=== PATIENT | female | born 1965 | race Caucasian/White ===

== ENCOUNTER 2018-01-07 15:54 | Emergency (ER) | payer MEDICARE, MEDICAID ==
[~2018-01-07] VITALS: Ht 162.6 cm; Wt 77.3 kg
[~2018-01-07 15:54] MED LIST: DIVA500T52 PO; GABA-533 PO; HYDR50CA10 PO; QUET200T PO; SERT100T12 PO; SIMV-259 PO; TRAZ-144 PO
[2018-01-07] MEDS ORDERED: OXYB1PAT4 PO (15:59)
[2018-01-07] MEDS ORDERED: BENA5TAB26 PO (15:59)
[2018-01-07] MEDS ORDERED: ESOM20CA31 PO (15:59)
[2018-01-07] MEDS ORDERED: DIVA500T35 PO (15:59)
[2018-01-07] MEDS ORDERED: METF500T6 PO (15:59)
[2018-01-07 16:32] VITALS: BP 122/54
== END 2018-01-07 17:17 | disposition home or self-care (01) ==
LOC: EMS 15:56
DX: S01.80XA Unspecified open wound of other part of head, initial encounter (principal); E11.9 Type 2 diabetes mellitus without complications; I10 Essential (primary) hypertension; F20.9 Schizophrenia, unspecified; F31.9 Bipolar disorder, unspecified; Z88.0 Allergy status to penicillin; Z88.6 Allergy status to analgesic agent; Z79.899 Other long term (current) drug therapy; W07.XXXA Fall from chair, initial encounter; Y93.89 Activity, other specified; Y92.89 Other specified places as the place of occurrence of the external cause; Y99.8 Other external cause status
CPT/HCPCS: 99282

== ENCOUNTER 2018-01-19 18:01 | Emergency (ER) | payer MEDICARE, MEDICAID ==
[~2018-01-19] VITALS: Ht 165.1 cm; Wt 63.6 kg
[~2018-01-19 18:01] MED LIST changes: +BENA5TAB26 PO; +DIVA500T35 PO; -DIVA500T52 PO; +ESOM20CA31 PO; +METF500T6 PO; +OXYB1PAT4 PO
[2018-01-19 18:28] LABS: GLUCOSE,POINT OF CARE 135 MG/DL (70-110)
[2018-01-19 22:44] VITALS: BP 131/68
[2018-01-20] MEDS ORDERED: QUET100T PO (22:42)
[2018-01-20] MEDS ORDERED: LORA1TAB3 PO (22:42)
[2018-01-20] MEDS ORDERED: BENZ1TAB10 PO (22:42)
[2018-01-20] MEDS ORDERED: DOCU250C90 PO (22:42)
[2018-01-20] MEDS ORDERED: SENN-175 PO (22:42)
[2018-01-20] MEDS ORDERED: ACET325T47 PO (22:42)
[2018-01-20] MEDS ORDERED: BENZ2TAB10 PO (22:42)
== END 2018-01-19 22:46 | disposition home or self-care (01) ==
LOC: EMS 18:02
DX: R60.0 Localized edema (principal); M79.89 Other specified soft tissue disorders; E11.9 Type 2 diabetes mellitus without complications; I10 Essential (primary) hypertension; F17.210 Nicotine dependence, cigarettes, uncomplicated; Z95.1 Presence of aortocoronary bypass graft; Z88.0 Allergy status to penicillin; Z88.2 Allergy status to sulfonamides; Z88.5 Allergy status to narcotic agent
CPT/HCPCS: 93971; 99284

== ENCOUNTER 2018-01-20 22:23 | Emergency (ER) | payer MEDICARE, MEDICAID ==
[~2018-01-20] VITALS: Ht 165.1 cm; Wt 63.0 kg
[2018-01-20] MEDS ORDERED: SENN-175 PO (22:42)
[2018-01-20] MEDS ORDERED: LORA1TAB3 PO (22:42)
[2018-01-20] MEDS ORDERED: DOCU250C90 PO (22:42)
[2018-01-20] MEDS ORDERED: BENZ2TAB10 PO (22:42)
[2018-01-20] MEDS ORDERED: BENZ1TAB10 PO (22:42)
[2018-01-20] MEDS ORDERED: ACET325T47 PO (22:42)
[2018-01-20] MEDS ORDERED: QUET100T PO (22:42)
[2018-01-20] MEDS ORDERED: SODIUM CHLORIDE 0.9% 1,000 ML IV ONE (23:45)
[2018-01-20] MEDS ORDERED: ONDANSETRON HCL 4 MG/2 ML VIAL IVP ONE (23:45)
[2018-01-20 23:56] LABS: BASOPHILS % (AUTO) 0.1 % (0.0-2.0); EOSINOPHILS % (AUTO) 0 % (1.0-6.0); HEMATOCRIT 36.2 % (36-46); HEMOGLOBIN 12.8 g/dL (12.0-16.0); LYMPHOCYTES # (AUTO) 0.4 K/uL (1.0-4.8); LYMPHOCYTES % (AUTO) 4.7 % (22.0-44.0); MEAN CORPUSCULAR HEMOGLOBIN 36.9 pg (26.0-34.0); MEAN CORPUSCULAR HGB CONC 35.5 G/dL (31.0-37.0); MEAN CORPUSCULAR VOLUME 104 fL (80-100); MONOCYTES # (AUTO) 0.8 K/uL (0.1-1.0); NEUTROPHILS # (AUTO) 8.1 K/uL (1.8-7.7); PLATELET COUNT (AUTO) 147 K/uL (150-450); RED BLOOD CELL COUNT(AUTO) 3.48 MIL/uL (4.00-5.20); RED CELL DISTRIBUTION WIDTH 16.3 % (11.5-14.5)
[2018-01-21 00:03] LABS: NEUTROPHILS % (AUTO) 86.2 % (40.0-70.0)
[2018-01-21 00:13] LABS: ANION GAP 6 mmol/L (8-16); CALCIUM, TOTAL 8.9 mg/dL (8.8-10.5); CARBON DIOXIDE 29 mmol/L (22-29); CHLORIDE 103 mmol/L (98-107); CREATININE 0.75 mg/dL (0.60-1.30); GLOMERULAR FILTR. RATE CALC > 60 mL/min (>60); GLUCOSE,RANDOM 165 mg/dL (70-110); SODIUM SERUM 138 mmol/L (136-145); UREA NITROGEN, BLOOD 16 mg/dL (7-18)
[2018-01-21 00:23] LABS: PLATELET MORPHOLOGY COMMENT GIANT PLTS PRESENT
[2018-01-21 00:26] LABS: ALANINE AMINOTRANSFERASE 13 U/L (12-78); ALBUMIN 2.5 g/dL (3.4-5.0); ALKALINE PHOSPHATASE 107 U/L (46-116); ASPARTATE AMINOTRANSFERASE 23 U/L (15-37); BILIRUBIN,TOTAL 0.6 mg/dL (0.1-1.0); LIPASE 45 U/L (73-393); TOTAL PROTEIN, SERUM 7.9 g/dL (6.4-8.2)
[2018-01-21] MEDS ORDERED: BARIUM SULFATE 0.1% SUSPENSION 450 ML BOTTLE PO ONE (01:30)
[2018-01-21] MEDS ORDERED: IOVERSOL 350 MG/ML 100 ML VIAL ONE (02:10)
[2018-01-21] MEDS ORDERED: SODIUM CHLORIDE 0.9% 100 ML ONE (02:10)
[2018-01-21] MEDS ORDERED: ONDANSETRON HCL 4 MG/2 ML VIAL IVP ONE (02:30)
[2018-01-21 05:15] VITALS: BP 118/71
== END 2018-01-21 05:39 | disposition home or self-care (01) ==
LOC: EMS 22:24
DX: K29.70 Gastritis, unspecified, without bleeding (principal); E86.0 Dehydration; E11.9 Type 2 diabetes mellitus without complications; I10 Essential (primary) hypertension; F17.210 Nicotine dependence, cigarettes, uncomplicated; Z95.1 Presence of aortocoronary bypass graft; Z88.5 Allergy status to narcotic agent; Z88.0 Allergy status to penicillin; Z88.2 Allergy status to sulfonamides
CPT/HCPCS: 36415; 74177; 80053; 83605; 83690; 84484; 85025; 93005; 96374; 96376; 99285; J2405 ×2; J7030; J7050; Q9967

== ENCOUNTER 2018-05-16 03:25 | Emergency (ER) | payer MEDICARE, MEDICAID ==
[~2018-05-16] VITALS: Ht 165.1 cm; Wt 63.0 kg
[~2018-05-16 03:25] MED LIST changes: +ACET325T47 PO; -BENA5TAB26 PO; +BENZ1TAB10 PO; +BENZ2TAB10 PO; +DIVA-78 PO; -DIVA500T35 PO; +DOCU250C90 PO; +LORA1TAB3 PO; +METF-960 PO; -METF500T6 PO; +QUET100T PO; -QUET200T PO; +SENN-175 PO; -TRAZ-144 PO
[2018-05-16 03:53] VITALS: BP 137/68
[2018-05-16 04:19] LABS: BASOPHILS % (AUTO) 0.8 % (0.0-2.0); EOSINOPHILS % (AUTO) 0.7 % (1.0-6.0); HEMATOCRIT 38.2 % (36-46); HEMOGLOBIN 13.3 g/dL (12.0-16.0); LYMPHOCYTES # (AUTO) 1.8 K/uL (1.0-4.8); LYMPHOCYTES % (AUTO) 52.2 % (22.0-44.0); MEAN CORPUSCULAR HEMOGLOBIN 38.4 pg (26.0-34.0); MEAN CORPUSCULAR HGB CONC 34.8 G/dL (31.0-37.0); MEAN CORPUSCULAR VOLUME 110 fL (80-100); MONOCYTES # (AUTO) 0.4 K/uL (0.1-1.0); MONOCYTES % (AUTO) 13.1 % (2.0-9.0); NEUTROPHILS # (AUTO) 1.1 K/uL (1.8-7.7); NEUTROPHILS % (AUTO) 33.2 % (40.0-70.0); PLATELET COUNT (AUTO) 118 K/uL (150-450); RED BLOOD CELL COUNT(AUTO) 3.46 MIL/uL (4.00-5.20); RED CELL DISTRIBUTION WIDTH 14.9 % (11.5-14.5)
[2018-05-16 04:27] LABS: ANION GAP 3 mmol/L (8-16); CALCIUM, TOTAL 8.9 mg/dL (8.8-10.5); CARBON DIOXIDE 33 mmol/L (22-29); CHLORIDE 97 mmol/L (98-107); CREATININE 0.69 mg/dL (0.60-1.30); GLOMERULAR FILTR. RATE CALC > 60 mL/min (>60); GLUCOSE,RANDOM 93 mg/dL (70-110); POTASSIUM 3.9 mmol/L (3.5-5.1); SODIUM SERUM 133 mmol/L (136-145); UREA NITROGEN, BLOOD 16 mg/dL (7-18)
[2018-05-16 04:32] LABS: ALANINE AMINOTRANSFERASE 19 U/L (12-78); ALKALINE PHOSPHATASE 83 U/L (46-116); ASPARTATE AMINOTRANSFERASE 24 U/L (15-37); BILIRUBIN,TOTAL 0.4 mg/dL (0.1-1.0); TOTAL PROTEIN, SERUM 8.3 g/dL (6.4-8.2); VALPROIC ACID 87 mcg/mL (50-100)
== END 2018-05-16 04:33 | disposition home or self-care (01) ==
LOC: EMS 03:26
DX: F25.9 Schizoaffective disorder, unspecified (principal); F31.9 Bipolar disorder, unspecified; E11.9 Type 2 diabetes mellitus without complications; I10 Essential (primary) hypertension; Z98.51 Tubal ligation status; Z95.1 Presence of aortocoronary bypass graft; Z88.0 Allergy status to penicillin; Z88.2 Allergy status to sulfonamides; Z88.5 Allergy status to narcotic agent
CPT/HCPCS: 36415; 80053; 80164; 85025; 99284; G0480

== ENCOUNTER 2018-09-25 08:51 | Emergency (ER) | payer MEDICARE, MEDICAID ==
[~2018-09-25] VITALS: Ht 157.5 cm; Wt 65.9 kg
[~2018-09-25 08:51] MED LIST changes: -SENN-175 PO; +SENN-176 PO
[2018-09-25 10:28] LABS: BASOPHILS % (AUTO) 0.5 % (0.0-2.0); EOSINOPHILS % (AUTO) 0.1 % (1.0-6.0); HEMATOCRIT 38.2 % (36-46); HEMOGLOBIN 12.9 g/dL (12.0-16.0); LYMPHOCYTES # (AUTO) 0.6 K/uL (1.0-4.8); MEAN CORPUSCULAR HEMOGLOBIN 37.2 pg (26.0-34.0); MEAN CORPUSCULAR HGB CONC 33.7 G/dL (31.0-37.0); MEAN CORPUSCULAR VOLUME 111 fL (80-100); MONOCYTES % (AUTO) 23.5 % (2.0-9.0); NEUTROPHILS # (AUTO) 2.6 K/uL (1.8-7.7); NEUTROPHILS % (AUTO) 61.9 % (40.0-70.0); RED BLOOD CELL COUNT(AUTO) 3.46 MIL/uL (4.00-5.20); RED CELL DISTRIBUTION WIDTH 14.2 % (11.5-14.5)
[2018-09-25 10:37] LABS: ANION GAP 7 mmol/L (8-16); CALCIUM, TOTAL 9.1 mg/dL (8.8-10.5); CARBON DIOXIDE 29 mmol/L (22-29); CHLORIDE 101 mmol/L (98-107); CREATININE 0.73 mg/dL (0.60-1.30); GLOMERULAR FILTR. RATE CALC > 60 mL/min (>60); GLUCOSE,RANDOM 146 mg/dL (70-110); POTASSIUM 4.5 mmol/L (3.5-5.1); SODIUM SERUM 137 mmol/L (136-145); UREA NITROGEN, BLOOD 14 mg/dL (7-18)
[2018-09-25 10:43] LABS: ALANINE AMINOTRANSFERASE 18 U/L (12-78); ALBUMIN 2.5 g/dL (3.4-5.0); ALKALINE PHOSPHATASE 117 U/L (46-116); ASPARTATE AMINOTRANSFERASE 46 U/L (15-37); BILIRUBIN,TOTAL 0.3 mg/dL (0.1-1.0); LIPASE 142 U/L (73-393); TOTAL PROTEIN, SERUM 7.8 g/dL (6.4-8.2); VALPROIC ACID 82 mcg/mL (50-100)
[2018-09-25 10:58] LABS: APPEARANCE,URINE CLEAR (CLEAR); BILIRUBIN,URINE NEGATIVE (NEGATIVE); GLUCOSE, URINE (UA) NEGATIVE (NEGATIVE); KETONES,URINE NEGATIVE (NEGATIVE); LEUKOCYTE ESTERASE ,URINE NEGATIVE (NEGATIVE); NITRATE,URINE NEGATIVE (NEGATIVE); OCCULT BLOOD,URINE NEGATIVE (NEGATIVE); PROTEIN,URINE NEGATIVE (NEGATIVE)
[2018-09-25 11:07] LABS: AMPHET/METH SCREEN,URINE NEGATIVE (NEGATIVE); BARBITURATE SCREEN, URINE NEGATIVE (NEGATIVE); BENZODIAZEPINES SCREEN,URINE NEGATIVE (NEGATIVE); CANNABINOID SCREEN,URINE NEGATIVE (NEGATIVE); COCAINE SCREEN,URINE NEGATIVE (NEGATIVE); METHADONE SCREEN, URINE NEGATIVE (NEGATIVE); OPIATE SCREEN,URINE NEGATIVE (NEGATIVE)
[2018-09-25 11:09] LABS: PHENCYCLIDINE SCREEN,URINE NEGATIVE (NEGATIVE)
[2018-09-25 11:54] LABS: PLATELET COUNT (AUTO) 91 K/uL (150-450)
[2018-09-25 13:51] VITALS: BP 124/86
== END 2018-09-25 13:53 | disposition home or self-care (01) ==
LOC: EMS 08:52
DX: F41.9 Anxiety disorder, unspecified (principal); F25.9 Schizoaffective disorder, unspecified; F31.9 Bipolar disorder, unspecified; R10.9 Unspecified abdominal pain; R35.0 Frequency of micturition; I10 Essential (primary) hypertension; E11.9 Type 2 diabetes mellitus without complications; Z87.891 Personal history of nicotine dependence; Z98.51 Tubal ligation status; Z95.1 Presence of aortocoronary bypass graft; Z79.84 Long term (current) use of oral hypoglycemic drugs; Z88.0 Allergy status to penicillin; Z88.2 Allergy status to sulfonamides; Z88.5 Allergy status to narcotic agent; Z79.899 Other long term (current) drug therapy

== ENCOUNTER 2018-12-09 12:10 | Emergency (ER) | payer MEDICARE, MEDICAID ==
[~2018-12-09] VITALS: Ht 160 cm; Wt 50.0 kg
[~2018-12-09 12:10] MED LIST changes: -BENZ2TAB10 PO
[2018-12-09] MEDS ORDERED: ACETAMINOPHEN 325 MG TABLET PO ONE (12:45)
[2018-12-09 13:38] VITALS: BP 124/51
== END 2018-12-09 14:31 | disposition home or self-care (01) ==
LOC: EMS 12:13
DX: S00.03XA Contusion of scalp, initial encounter (principal); E11.9 Type 2 diabetes mellitus without complications; I10 Essential (primary) hypertension; F31.9 Bipolar disorder, unspecified; F20.9 Schizophrenia, unspecified; Z98.51 Tubal ligation status; Z95.1 Presence of aortocoronary bypass graft; Z79.899 Other long term (current) drug therapy; Z88.0 Allergy status to penicillin; Z88.2 Allergy status to sulfonamides; Z88.6 Allergy status to analgesic agent; W18.09XA Striking against other object with subsequent fall, initial encounter; Y93.89 Activity, other specified; Y92.89 Other specified places as the place of occurrence of the external cause; Y99.8 Other external cause status
CPT/HCPCS: 70450

== ENCOUNTER 2019-01-18 14:47 | Emergency (ER) | payer MEDICARE, MEDICAID ==
[~2019-01-18] VITALS: Ht 149.9 cm; Wt 47.7 kg
[2019-01-18 16:19] LABS: AMPHET/METH SCREEN,URINE NEGATIVE (NEGATIVE); BARBITURATE SCREEN, URINE NEGATIVE (NEGATIVE); BENZODIAZEPINES SCREEN,URINE POSITIVE (NEGATIVE); CANNABINOID SCREEN,URINE NEGATIVE (NEGATIVE); COCAINE SCREEN,URINE NEGATIVE (NEGATIVE); METHADONE SCREEN, URINE NEGATIVE (NEGATIVE); OPIATE SCREEN,URINE NEGATIVE (NEGATIVE)
[2019-01-18 16:20] LABS: PHENCYCLIDINE SCREEN,URINE NEGATIVE (NEGATIVE)
[2019-01-18 16:22] LABS: BASOPHILS % (AUTO) 0.8 % (0.0-2.0); EOSINOPHILS % (AUTO) 1.2 % (1.0-6.0); HEMATOCRIT 34.4 % (36-46); HEMOGLOBIN 11.9 g/dL (12.0-16.0); LYMPHOCYTES # (AUTO) 2.3 K/uL (1.0-4.8); LYMPHOCYTES % (AUTO) 47.1 % (22.0-44.0); MEAN CORPUSCULAR HEMOGLOBIN 37.8 pg (26.0-34.0); MEAN CORPUSCULAR HGB CONC 34.5 G/dL (31.0-37.0); MEAN CORPUSCULAR VOLUME 110 fL (80-100); MONOCYTES # (AUTO) 0.6 K/uL (0.1-1.0); NEUTROPHILS # (AUTO) 1.9 K/uL (1.8-7.7); NEUTROPHILS % (AUTO) 37.9 % (40.0-70.0); PLATELET COUNT (AUTO) 137 K/uL (150-450); RED BLOOD CELL COUNT(AUTO) 3.14 MIL/uL (4.00-5.20); RED CELL DISTRIBUTION WIDTH 14.9 % (11.5-14.5)
[2019-01-18 16:34] LABS: ANION GAP 6 mmol/L (8-16); CALCIUM, TOTAL 8.6 mg/dL (8.8-10.5); CARBON DIOXIDE 28 mmol/L (22-29); CHLORIDE 103 mmol/L (98-107); CREATININE 0.69 mg/dL (0.60-1.30); GLOMERULAR FILTR. RATE CALC > 60 mL/min (>60); GLUCOSE,RANDOM 156 mg/dL (70-110); POTASSIUM 4.2 mmol/L (3.5-5.1); SODIUM SERUM 137 mmol/L (136-145); UREA NITROGEN, BLOOD 21 mg/dL (7-18)
[2019-01-18 16:41] LABS: ALANINE AMINOTRANSFERASE 6 U/L (12-78); ALBUMIN 2.5 g/dL (3.4-5.0); ALKALINE PHOSPHATASE 66 U/L (46-116); ASPARTATE AMINOTRANSFERASE 14 U/L (15-37); BILIRUBIN,TOTAL 0.2 mg/dL (0.1-1.0); TOTAL PROTEIN, SERUM 7.5 g/dL (6.4-8.2); VALPROIC ACID 70 mcg/mL (50-100)
[2019-01-18 17:45] VITALS: BP 125/72
== END 2019-01-18 18:10 | disposition home or self-care (01) ==
LOC: EMS 14:49
DX: F20.9 Schizophrenia, unspecified (principal); I10 Essential (primary) hypertension; F31.9 Bipolar disorder, unspecified; E11.9 Type 2 diabetes mellitus without complications; Z88.0 Allergy status to penicillin; Z88.2 Allergy status to sulfonamides; Z88.5 Allergy status to narcotic agent; X78.8XXA Intentional self-harm by other sharp object, initial encounter; Y93.89 Activity, other specified; Y92.89 Other specified places as the place of occurrence of the external cause; Y99.8 Other external cause status
CPT/HCPCS: 36415; 80053; 80164; 80307; 85025; 99285; G0480

== ENCOUNTER 2019-04-30 17:51 | Inpatient (IN) | payer MEDICARE, MEDICAID ==
[~2019-04-30] VITALS: Ht 157.5 cm; Wt 49.9 kg
[~2019-04-30 17:51] MED LIST changes: -HYDR50CA10 PO; +HYDR50CA9 PO; +LORA-1000 PO; -LORA1TAB3 PO
[2019-04-30 18:16] LABS: GLUCOSE,POINT OF CARE 140 MG/DL (70-110)
[2019-04-30 18:29] LABS: EOSINOPHILS % (AUTO) 1.3 % (1.0-6.0); HEMATOCRIT 39.8 % (36-46); HEMOGLOBIN 13.7 g/dL (12.0-16.0); LYMPHOCYTES # (AUTO) 2.7 K/uL (1.0-4.8); LYMPHOCYTES % (AUTO) 49.4 % (22.0-44.0); MEAN CORPUSCULAR HEMOGLOBIN 37.4 pg (26.0-34.0); MEAN CORPUSCULAR HGB CONC 34.4 G/dL (31.0-37.0); MEAN CORPUSCULAR VOLUME 109 fL (80-100); MONOCYTES # (AUTO) 0.8 K/uL (0.1-1.0); MONOCYTES % (AUTO) 15.4 % (2.0-9.0); NEUTROPHILS # (AUTO) 1.8 K/uL (1.8-7.7); NEUTROPHILS % (AUTO) 32.9 % (40.0-70.0); PLATELET COUNT (AUTO) 158 K/uL (150-450); RED BLOOD CELL COUNT(AUTO) 3.67 MIL/uL (4.00-5.20); RED CELL DISTRIBUTION WIDTH 14.8 % (11.5-14.5)
[2019-04-30 18:53] LABS: ANION GAP 11 mmol/L (8-16); CALCIUM, TOTAL 8.9 mg/dL (8.8-10.5); CARBON DIOXIDE 26 mmol/L (22-29); CHLORIDE 104 mmol/L (98-107); CREATININE 0.84 mg/dL (0.60-1.30); GLOMERULAR FILTR. RATE CALC > 60 mL/min (>60); GLUCOSE,RANDOM 144 mg/dL (70-110); POTASSIUM 4.2 mmol/L (3.5-5.1); SODIUM SERUM 141 mmol/L (136-145); UREA NITROGEN, BLOOD 19 mg/dL (7-18)
[2019-04-30 18:59] LABS: ALBUMIN 2.9 g/dL (3.4-5.0); ALKALINE PHOSPHATASE 73 U/L (46-116); ASPARTATE AMINOTRANSFERASE 15 U/L (15-37); BILIRUBIN,TOTAL 0.2 mg/dL (0.1-1.0); TOTAL PROTEIN, SERUM 7.7 g/dL (6.4-8.2)
[2019-04-30 19:08] LABS: ALANINE AMINOTRANSFERASE 9 U/L (12-78)
[2019-04-30] MEDS ORDERED: LORazepam 2 MG TABLET PO PRN (22:00)
[2019-04-30] MEDS ORDERED: ZOLPIDEM TARTRATE 10 MG TABLET PO PRN (22:00)
[2019-04-30] MEDS ORDERED: QUEtiapine FUMARATE 100 MG TABLET PO PRN (22:00)
[2019-04-30] MEDS ORDERED: 0.9% SODIUM CHLORIDE 10 ML SYRINGE IVP PRN (22:45)
[2019-04-30] MEDS ORDERED: ACETAMINOPHEN 325 MG TABLET PO PRN (22:45)
[2019-04-30] MEDS ORDERED: ONDANSETRON HCL 4 MG/2 ML VIAL IVP PRN (22:45)
[2019-05-01 00:54] VITALS: BP 129/62
[2019-05-01] MEDS ORDERED: INFLUENZA VIRUS VACCINE QVS 2019-20 (3YR+)/PF 60 MCG/0.5 ML SYRINGE IM ONE (03:30)
[2019-05-01 08:00] VITALS: BP 146/78
[2019-05-01] MEDS ORDERED: MAG HYDROX/AL HYDROX/SIMETH ES 30 ML SUSPENSION UDCUP PO PRN (08:45)
[2019-05-01] MEDS ORDERED: GuaiFENesin/D-METHORPHAN [SUGAR-FREE] 200-20MG/10 ML SYRUP UDCUP PO PRN (08:45)
[2019-05-01] MEDS ORDERED: ONDANSETRON HCL 4 MG TABLET PO PRN (08:45)
[2019-05-01] MEDS ORDERED: CloNIDine HCL 0.1 MG TABLET PO PRN (08:45)
[2019-05-01] MEDS ORDERED: DOCUSATE SODIUM 100 MG CAPSULE PO PRN (08:45)
[2019-05-01] MEDS ORDERED: ACETAMINOPHEN 325 MG TABLET PO PRN (08:45)
[2019-05-01] MEDS ORDERED: PETROLATUM,WHITE 28 GM JELLY TP PRN (08:45)
[2019-05-01] MEDS ORDERED: NICOTINE 14 MG/24 HOUR PATCH TD PRN (08:45)
[2019-05-01] MEDS ORDERED: MAGNESIUM HYDROXIDE SUSPENSION 30 ML UDCUP PO PRN (08:45)
[2019-05-01] MEDS ORDERED: ALBUTEROL SULFATE HFA 90 MCG/PUFF 8 GM INHALER IH PRN (08:45)
[2019-05-01] MEDS ORDERED: IBUPROFEN 400 MG TABLET PO PRN (08:45)
[2019-05-01] MEDS ORDERED: SENNA 187 MG TABLET PO SCH ×2 (09:00→09:10)
[2019-05-01] MEDS: SENNA 187 MG TABLET PO SCH ×2 (09:38→16:53)
[2019-05-01] MEDS: SERTRALINE HCL 100 MG TABLET PO SCH (13:42)
[2019-05-01] MEDS: DIVALPROEX SODIUM 500 MG DR TABLET PO SCH (16:53)
[2019-05-01] MEDS: MetFORMIN HCL 500 MG TABLET PO SCH (16:53)
[2019-05-01] MEDS: QUEtiapine FUMARATE 200 MG TABLET PO SCH (21:17)
[2019-05-01] MEDS: BENZTROPINE MESYLATE 1 MG TABLET PO SCH (21:18)
[2019-05-01 21:23] VITALS: BP 134/81
[2019-05-02] MEDS: MetFORMIN HCL 500 MG TABLET PO SCH ×3 (07:15→17:30)
[2019-05-02 08:00] VITALS: BP 109/53
[2019-05-02] MEDS: DIVALPROEX SODIUM 500 MG DR TABLET PO SCH ×2 (09:52→17:20)
[2019-05-02] MEDS: SERTRALINE HCL 100 MG TABLET PO SCH (09:52)
[2019-05-02] MEDS: SENNA 187 MG TABLET PO SCH ×3 (09:52→17:20)
[2019-05-02 16:42] VITALS: BP 121/77
[2019-05-02] MEDS: LOPERAMIDE HCL 2 MG CAPSULE PO PRN (17:20)
[2019-05-02] MEDS: BENZTROPINE MESYLATE 1 MG TABLET PO SCH (20:25)
[2019-05-02] MEDS: QUEtiapine FUMARATE 200 MG TABLET PO SCH (20:25)
[2019-05-03 08:00] VITALS: BP 113/65
[2019-05-03] MEDS: DIVALPROEX SODIUM 500 MG DR TABLET PO SCH ×2 (08:30→16:49)
[2019-05-03] MEDS: MetFORMIN HCL 500 MG TABLET PO SCH ×2 (08:30→16:48)
[2019-05-03] MEDS: SERTRALINE HCL 100 MG TABLET PO SCH (08:30)
[2019-05-03] MEDS: SENNA 187 MG TABLET PO SCH ×2 (08:31→16:48)
[2019-05-03 16:34] VITALS: BP 53/79
[2019-05-03] MEDS: BENZTROPINE MESYLATE 1 MG TABLET PO SCH (20:19)
[2019-05-03] MEDS: QUEtiapine FUMARATE 200 MG TABLET PO SCH (20:19)
[2019-05-04] MEDS: SERTRALINE HCL 100 MG TABLET PO SCH (08:08)
[2019-05-04] MEDS: SENNA 187 MG TABLET PO SCH ×2 (08:08→17:00)
[2019-05-04] MEDS: MetFORMIN HCL 500 MG TABLET PO SCH ×2 (08:09→17:39)
[2019-05-04] MEDS: DIVALPROEX SODIUM 500 MG DR TABLET PO SCH ×2 (08:09→17:39)
[2019-05-04 09:21] VITALS: BP 122/67
[2019-05-04] MEDS ORDERED: ZOLPIDEM TARTRATE 10 MG TABLET PO PRN (11:00)
[2019-05-04] MEDS: LOPERAMIDE HCL 2 MG CAPSULE PO PRN (12:37)
[2019-05-04] MEDS: LORazepam 1 MG TABLET PO PRN (12:37)
[2019-05-04] MEDS ORDERED: LORazepam 2 MG TABLET PO PRN (14:00)
[2019-05-04] MEDS ORDERED: QUEtiapine FUMARATE 25 MG TABLET PO PRN (14:00)
[2019-05-04] MEDS: QUEtiapine FUMARATE 200 MG TABLET PO SCH (20:30)
[2019-05-04] MEDS: BENZTROPINE MESYLATE 1 MG TABLET PO SCH (20:30)
[2019-05-05] MEDS: MetFORMIN HCL 500 MG TABLET PO SCH ×2 (06:51→16:35)
[2019-05-05] MEDS: DIVALPROEX SODIUM 500 MG DR TABLET PO SCH ×2 (08:13→16:35)
[2019-05-05] MEDS: SERTRALINE HCL 100 MG TABLET PO SCH (08:14)
[2019-05-05] MEDS: SENNA 187 MG TABLET PO SCH ×2 (08:14→16:35)
[2019-05-05 09:41] VITALS: BP 107/64
[2019-05-05] MEDS: LORazepam 1 MG TABLET PO PRN (16:38)
[2019-05-05 18:00] VITALS: BP 119/60
[2019-05-05] MEDS: BENZTROPINE MESYLATE 1 MG TABLET PO SCH (20:12)
[2019-05-05] MEDS: QUEtiapine FUMARATE 200 MG TABLET PO SCH (20:12)
[2019-05-06] MEDS: MetFORMIN HCL 500 MG TABLET PO SCH ×2 (06:38→16:48)
[2019-05-06] MEDS: SENNA 187 MG TABLET PO SCH (09:59)
[2019-05-06] MEDS: SERTRALINE HCL 100 MG TABLET PO SCH (09:59)
[2019-05-06] MEDS: DIVALPROEX SODIUM 500 MG DR TABLET PO SCH ×2 (09:59→16:48)
[2019-05-06 10:59] VITALS: BP 132/56
[2019-05-06] MEDS ORDERED: LORA-192 PO (16:09)
[2019-05-06] MEDS ORDERED: OXYB5XL PO (16:09)
[2019-05-06] MEDS: LOPERAMIDE HCL 2 MG CAPSULE PO PRN (16:48)
[2019-05-06 17:00] VITALS: BP 113/63
[2019-05-06] MEDS: QUEtiapine FUMARATE 200 MG TABLET PO SCH (22:12)
[2019-05-06] MEDS: BENZTROPINE MESYLATE 1 MG TABLET PO SCH (22:12)
[2019-05-07] MEDS: MetFORMIN HCL 500 MG TABLET PO SCH (06:31)
[2019-05-07] MEDS: DIVALPROEX SODIUM 500 MG DR TABLET PO SCH (08:57)
[2019-05-07] MEDS: SERTRALINE HCL 100 MG TABLET PO SCH (08:57)
[2019-05-07 09:48] VITALS: BP 138/77
== END 2019-05-07 14:15 | disposition home or self-care (01) | DRG 885 ==
LOC: EMS 17:53 → 3EX 05-01 00:04
DX: F25.0 Schizoaffective disorder, bipolar type (principal); E44.0 Moderate protein-calorie malnutrition; R45.851 Suicidal ideations; Q93.82 Williams syndrome; I10 Essential (primary) hypertension; E11.9 Type 2 diabetes mellitus without complications; E78.5 Hyperlipidemia, unspecified; J44.9 Chronic obstructive pulmonary disease, unspecified; K21.9 Gastro-esophageal reflux disease without esophagitis; K59.00 Constipation, unspecified; R32 Unspecified urinary incontinence; F17.210 Nicotine dependence, cigarettes, uncomplicated; Z91.5 Personal history of self-harm; Z95.1 Presence of aortocoronary bypass graft; Z88.0 Allergy status to penicillin; Z88.2 Allergy status to sulfonamides; Z88.6 Allergy status to analgesic agent; Z79.899 Other long term (current) drug therapy; Z98.51 Tubal ligation status; Z68.20 Body mass index [BMI] 20.0-20.9, adult
CPT/HCPCS: G0378; G0480

== ENCOUNTER 2021-10-16 13:35 | Inpatient (IN) | payer MEDICARE, MEDICAID ==
[~2021-10-16] VITALS: Ht 160 cm; Wt 54.5 kg
[~2021-10-16 13:35] MED LIST changes: -ACET325T47 PO; +ALBU8HFA IH; +AMIO200 PO; +AMIO200T68 PO; +ASPI-1450 PO; -BENZ1TAB10 PO; +BISA-151 PO; +CHOL500013 PO; +DIVA-112 PO; -DIVA-78 PO; +DOCU-350 PO; -DOCU250C90 PO; +FOLI0.4T6 PO; +FURO20 PO; +GABA-1201 PO; -GABA-533 PO; -HYDR50CA9 PO; +IPRA3S NASAL; -LORA-1000 PO; +MELA3TAB89 PO; +METF-1211 PO; -METF-960 PO; +METO-558 PO; +METO25XL PO; +MOM30 PO; +NICO-650 TP; +OXYB-34 PO; -OXYB1PAT4 PO; -SENN-176 PO; +SENN8.8S18 PO; -SERT100T12 PO; -SIMV-259 PO; +SIMV-260 PO; +THIA100T92 PO; +TRAZ150T80 PO
[2021-10-16 13:57] LABS: BASOPHILS % (AUTO) 0.4 % (0.0-2.0); EOSINOPHILS % (AUTO) 0.6 % (1.0-6.0); HEMATOCRIT 42.6 % (36-46); HEMOGLOBIN 14.6 g/dL (12.0-16.0); LYMPHOCYTES # (AUTO) 1.3 K/uL (1.0-4.8); LYMPHOCYTES % (AUTO) 11.8 % (22.0-44.0); MEAN CORPUSCULAR HEMOGLOBIN 35.7 pg (26.0-34.0); MEAN CORPUSCULAR HGB CONC 34.1 G/dL (31.0-37.0); MEAN CORPUSCULAR VOLUME 105 fL (80-100); MONOCYTES # (AUTO) 1.7 K/uL (0.1-1.0); MONOCYTES % (AUTO) 15.5 % (2.0-9.0); NEUTROPHILS # (AUTO) 7.9 K/uL (1.8-7.7); NEUTROPHILS % (AUTO) 71.7 % (40.0-70.0); PLATELET COUNT (AUTO) 186 K/uL (150-450); RED BLOOD CELL COUNT(AUTO) 4.08 MIL/uL (4.00-5.20); RED CELL DISTRIBUTION WIDTH 14.4 % (11.5-14.5)
[2021-10-16] MEDS ORDERED: ACETAMINOPHEN 650 MG/20.3 ML SOLUTION UDCUP PO ONE (14:00)
[2021-10-16] MEDS ORDERED: SODIUM CHLORIDE 0.9% 1,650 ML IV ONE (14:00)
[2021-10-16 14:03] LABS: COVID AG,FIA SOURCE NASAL SWAB
[2021-10-16 14:12] LABS: ANION GAP 5 mmol/L (8-16); CALCIUM, TOTAL 9.4 mg/dL (8.8-10.5); CARBON DIOXIDE 36 mmol/L (22-29); CHLORIDE 97 mmol/L (98-107); CREATININE 0.77 mg/dL (0.60-1.30); GLOMERULAR FILTR. RATE CALC > 60 mL/min (>60); GLUCOSE,RANDOM 80 mg/dL (70-110); PROTHROMBIN TIME 10.8 SEC (9.4-11.6); SODIUM SERUM 138 mmol/L (136-145); UREA NITROGEN, BLOOD 17 mg/dL (7-18)
[2021-10-16 14:12] LABS: APPEARANCE,URINE CLEAR (CLEAR); BILIRUBIN,URINE NEGATIVE (NEGATIVE); GLUCOSE, URINE (UA) NEGATIVE (NEGATIVE); KETONES,URINE NEGATIVE (NEGATIVE); LEUKOCYTE ESTERASE ,URINE NEGATIVE (NEGATIVE); NITRATE,URINE NEGATIVE (NEGATIVE); OCCULT BLOOD,URINE NEGATIVE (NEGATIVE); PROTEIN,URINE NEGATIVE (NEGATIVE); SPECIFIC GRAVITIY, URINE 1.011 (1.003-1.030); UROBILINOGEN,URINE <=1.0 mg/dL (<=1.0)
[2021-10-16] MEDS ORDERED: ACETAMINOPHEN 1000 MG/ISO-OSM 100 ML IV ONE (14:15)
[2021-10-16 14:16] LABS: ALKALINE PHOSPHATASE 61 U/L (46-116); ASPARTATE AMINOTRANSFERASE 13 U/L (15-37); BILIRUBIN,TOTAL 0.3 mg/dL (0.1-1.0); TOTAL PROTEIN, SERUM 8.9 g/dL (6.4-8.2)
[2021-10-16 14:17] LABS: AMPHET/METH SCREEN,URINE NEGATIVE (NEGATIVE); BARBITURATE SCREEN, URINE NEGATIVE (NEGATIVE); BENZODIAZEPINES SCREEN,URINE NEGATIVE (NEGATIVE); CANNABINOID SCREEN,URINE NEGATIVE (NEGATIVE); COCAINE SCREEN,URINE NEGATIVE (NEGATIVE); METHADONE SCREEN, URINE NEGATIVE (NEGATIVE); OPIATE SCREEN,URINE NEGATIVE (NEGATIVE)
[2021-10-16 14:18] LABS: PHENCYCLIDINE SCREEN,URINE NEGATIVE (NEGATIVE)
[2021-10-16 14:20] LABS: B-TYPE NATRIURETIC PEPTIDE 309 pg/mL (0-100)
[2021-10-16] MEDS ORDERED: IOHEXOL 350 MG/ML 75 ML VIAL ONE (14:23)
[2021-10-16] MEDS ORDERED: SODIUM CHLORIDE 0.9% 100 ML ONE (14:23)
[2021-10-16 14:25] LABS: ALANINE AMINOTRANSFERASE 7 U/L (12-78)
[2021-10-16] MEDS ORDERED: LEVOFLOXACIN 250 MG TABLET PO ONE (14:30)
[2021-10-16 14:34] LABS: AMMONIA 16 umol/L (11-32)
[2021-10-16] MEDS ORDERED: METOPROLOL TARTRATE 5 MG/5 ML VIAL IVP ONE (15:15)
[2021-10-16] MEDS ORDERED: OXYB5TAB20 PO (15:31)
[2021-10-16] MEDS ORDERED: MetroNIDAZOLE 500 MG/NACL 100 ML IV ONE (16:45)
[2021-10-16] MEDS ORDERED: ACETAMINOPHEN 325 MG TABLET PO PRN (17:15)
[2021-10-16] MEDS ORDERED: ONDANSETRON HCL 4 MG/2 ML VIAL IVP PRN ×2 (17:15→19:30)
[2021-10-16] MEDS ORDERED: 0.9% SODIUM CHLORIDE 10 ML SYRINGE IVP PRN (17:15)
[2021-10-16] MEDS ORDERED: ALBUTEROL SULFATE 2.5 MG/0.5 ML NEB SOLUTION NEB PRN (19:30)
[2021-10-16] MEDS ORDERED: ZOLPIDEM TARTRATE 5 MG TABLET PO PRN (19:30)
[2021-10-16] MEDS ORDERED: BISACODYL 10 MG RECTAL RECTAL SUPPOSITORY PR PRN (19:30)
[2021-10-16] MEDS ORDERED: *CLINICAL-LEVOFLOXACIN IVPB DOSING CLINICAL ONE (19:30)
[2021-10-16] MEDS ORDERED: SODIUM CHLORIDE 0.9% 1,000 ML IV ONE (19:30)
[2021-10-16] MEDS ORDERED: MAGNESIUM HYDROXIDE SUSPENSION 30 ML UDCUP PO PRN (19:30)
[2021-10-16 20:30] VITALS: BP 98/59
[2021-10-16] MEDS: BUDESONIDE 0.5 MG/2 ML NEB SOLUTION NEB SCH (21:00)
[2021-10-16] MEDS: DOCUSATE SODIUM 100 MG CAPSULE PO SCH (21:00)
[2021-10-16] MEDS ORDERED: SODIUM CHLORIDE 0.9% 250 ML IV ONE (21:53)
[2021-10-16] MEDS: CLINDAMYCIN 600 MG/D5% WATER 50 ML IV SCH (22:02)
[2021-10-16] MEDS: LEVOFLOXACIN 750 MG/D5% WATER 150 ML IV SCH (22:03)
[2021-10-17] MEDS: HEPARIN SODIUM,PORCINE 5,000 UNITS/ML VIAL SQ SCH ×3 (00:03→16:00)
[2021-10-17 00:10] VITALS: BP 100/54
[2021-10-17] MEDS: CLINDAMYCIN 600 MG/D5% WATER 50 ML IV SCH ×3 (03:49→20:01)
[2021-10-17 04:45] VITALS: BP 109/59
[2021-10-17 07:05] LABS: MEAN CORPUSCULAR HEMOGLOBIN 36.1 pg (26.0-34.0); MEAN CORPUSCULAR HGB CONC 34.3 G/dL (31.0-37.0); MEAN CORPUSCULAR VOLUME 105 fL (80-100); PLATELET COUNT (AUTO) 159 K/uL (150-450); RED BLOOD CELL COUNT(AUTO) 3.23 MIL/uL (4.00-5.20); RED CELL DISTRIBUTION WIDTH 13.8 % (11.5-14.5)
[2021-10-17 07:31] LABS: ALANINE AMINOTRANSFERASE 6 U/L (12-78); ALBUMIN 2.4 g/dL (3.4-5.0); ALKALINE PHOSPHATASE 49 U/L (46-116); ANION GAP 7 mmol/L (8-16); ASPARTATE AMINOTRANSFERASE 12 U/L (15-37); BILIRUBIN,TOTAL 0.3 mg/dL (0.1-1.0); CALCIUM, TOTAL 8.3 mg/dL (8.8-10.5); CARBON DIOXIDE 30 mmol/L (22-29); CHLORIDE 101 mmol/L (98-107); CREATININE 0.57 mg/dL (0.60-1.30); GLUCOSE,RANDOM 110 mg/dL (70-110); POTASSIUM 3.7 mmol/L (3.5-5.1); SODIUM SERUM 138 mmol/L (136-145); TOTAL PROTEIN, SERUM 7.1 g/dL (6.4-8.2); UREA NITROGEN, BLOOD 15 mg/dL (7-18)
[2021-10-17 07:35] LABS: GLOMERULAR FILTR. RATE CALC > 60 mL/min (>60)
[2021-10-17 07:48] LABS: HEMOGLOBIN 11.7 g/dL (12.0-16.0)
[2021-10-17 08:01] LABS: GLUCOMETER DEV NAME(LOC) 5S.2B; GLUCOSE,POINT OF CARE 111 MG/DL (70-110)
[2021-10-17] MEDS: ASPIRIN 81 MG CHEWABLE TABLET PO SCH (08:18)
[2021-10-17] MEDS: DOCUSATE SODIUM 100 MG CAPSULE PO SCH ×2 (08:18→21:00)
[2021-10-17] MEDS: PANTOPRAZOLE SODIUM 40 MG DR TABLET PO SCH (08:18)
[2021-10-17 08:23] LABS: BAND NEUTROPHILS % (MANUAL) 1 % (0-5); LYMPHOCYTES % (MANUAL) 24 % (22-44); MONOCYTES % (MANUAL) 13 % (2-9); SEGMENTED NEUTROPHILS % 62 % (40-70)
[2021-10-17 08:48] VITALS: BP 124/61
[2021-10-17] MEDS: BUDESONIDE 0.5 MG/2 ML NEB SOLUTION NEB SCH ×2 (08:50→21:00)
[2021-10-17 12:11] LABS: GLUCOMETER DEV NAME(LOC) 5N.3; GLUCOSE,POINT OF CARE 101 MG/DL (70-110)
[2021-10-17 14:50] VITALS: BP 128/66
[2021-10-17 17:06] VITALS: BP 124/93
[2021-10-17 18:16] LABS: GLUCOMETER DEV NAME(LOC) 5S.2B; GLUCOSE,POINT OF CARE 142 MG/DL (70-110)
[2021-10-17 18:16] LABS: GLUCOMETER DEV NAME(LOC) 5S.2B; GLUCOSE,POINT OF CARE 136 MG/DL (70-110)
[2021-10-17 20:15] VITALS: BP 132/71
[2021-10-17] MEDS: LEVOFLOXACIN 750 MG/D5% WATER 150 ML IV SCH (22:58)
[2021-10-18] VITALS (7 sets, daily range): BP systolic 107–157; BP diastolic 46–78
[2021-10-18] MEDS: ACETAMINOPHEN 325 MG TABLET PO PRN ×2 (00:40→19:54)
[2021-10-18] MEDS: CLINDAMYCIN 600 MG/D5% WATER 50 ML IV SCH ×3 (04:47→19:46)
[2021-10-18 06:58] LABS: BASOPHILS % (AUTO) 0.2 % (0.0-2.0); EOSINOPHILS % (AUTO) 1.3 % (1.0-6.0); HEMATOCRIT 34.6 % (36-46); HEMOGLOBIN 11.9 g/dL (12.0-16.0); LYMPHOCYTES # (AUTO) 1.1 K/uL (1.0-4.8); LYMPHOCYTES % (AUTO) 25.4 % (22.0-44.0); MEAN CORPUSCULAR HEMOGLOBIN 36.3 pg (26.0-34.0); MEAN CORPUSCULAR HGB CONC 34.5 G/dL (31.0-37.0); MEAN CORPUSCULAR VOLUME 105 fL (80-100); MONOCYTES % (AUTO) 23.8 % (2.0-9.0); NEUTROPHILS # (AUTO) 2.1 K/uL (1.8-7.7); NEUTROPHILS % (AUTO) 49.3 % (40.0-70.0); PLATELET COUNT (AUTO) 166 K/uL (150-450); RED BLOOD CELL COUNT(AUTO) 3.29 MIL/uL (4.00-5.20); RED CELL DISTRIBUTION WIDTH 13.7 % (11.5-14.5)
[2021-10-18 06:59] LABS: ANION GAP 9 mmol/L (8-16); CALCIUM, TOTAL 9.1 mg/dL (8.8-10.5); CARBON DIOXIDE 27 mmol/L (22-29); CHLORIDE 103 mmol/L (98-107); CREATININE 0.54 mg/dL (0.60-1.30); GLUCOSE,RANDOM 161 mg/dL (70-110); POTASSIUM 4.1 mmol/L (3.5-5.1); SODIUM SERUM 139 mmol/L (136-145); UREA NITROGEN, BLOOD 13 mg/dL (7-18)
[2021-10-18 07:03] LABS: GLOMERULAR FILTR. RATE CALC > 60 mL/min (>60)
[2021-10-18] MEDS: HEPARIN SODIUM,PORCINE 5,000 UNITS/ML VIAL SQ SCH ×4 (08:00→23:47)
[2021-10-18] MEDS: BUDESONIDE 0.5 MG/2 ML NEB SOLUTION NEB SCH ×2 (09:00→20:16)
[2021-10-18] MEDS: PANTOPRAZOLE SODIUM 40 MG DR TABLET PO SCH (09:52)
[2021-10-18] MEDS: DOCUSATE SODIUM 100 MG CAPSULE PO SCH ×2 (09:52→20:53)
[2021-10-18] MEDS: ASPIRIN 81 MG CHEWABLE TABLET PO SCH (09:52)
[2021-10-18] MEDS: LEVOFLOXACIN 750 MG/D5% WATER 150 ML IV SCH (20:52)
[2021-10-19 02:05] VITALS: BP 126/80
[2021-10-19] MEDS: CLINDAMYCIN 600 MG/D5% WATER 50 ML IV SCH (03:53)
[2021-10-19 05:26] VITALS: BP 151/65
[2021-10-19 07:25] VITALS: BP 131/73
[2021-10-19 08:15] LABS: GLUCOMETER DEV NAME(LOC) 5S.2B; GLUCOSE,POINT OF CARE 149 MG/DL (70-110)
[2021-10-19] MEDS: BUDESONIDE 0.5 MG/2 ML NEB SOLUTION NEB SCH (09:00)
[2021-10-19 09:21] LABS: BASOPHILS % (AUTO) 0.3 % (0.0-2.0); EOSINOPHILS % (AUTO) 0.7 % (1.0-6.0); HEMATOCRIT 37.9 % (36-46); HEMOGLOBIN 12.7 g/dL (12.0-16.0); LYMPHOCYTES # (AUTO) 1.2 K/uL (1.0-4.8); LYMPHOCYTES % (AUTO) 22.7 % (22.0-44.0); MEAN CORPUSCULAR HEMOGLOBIN 35.5 pg (26.0-34.0); MEAN CORPUSCULAR HGB CONC 33.4 G/dL (31.0-37.0); MEAN CORPUSCULAR VOLUME 107 fL (80-100); MONOCYTES # (AUTO) 0.8 K/uL (0.1-1.0); MONOCYTES % (AUTO) 15.7 % (2.0-9.0); NEUTROPHILS # (AUTO) 3.1 K/uL (1.8-7.7); NEUTROPHILS % (AUTO) 60.6 % (40.0-70.0); PLATELET COUNT (AUTO) 217 K/uL (150-450); RED BLOOD CELL COUNT(AUTO) 3.56 MIL/uL (4.00-5.20)
[2021-10-19] MEDS: ASPIRIN 81 MG CHEWABLE TABLET PO SCH (09:22)
[2021-10-19] MEDS: DOCUSATE SODIUM 100 MG CAPSULE PO SCH (09:22)
[2021-10-19] MEDS: PANTOPRAZOLE SODIUM 40 MG DR TABLET PO SCH (09:22)
[2021-10-19] MEDS: HEPARIN SODIUM,PORCINE 5,000 UNITS/ML VIAL SQ SCH (09:22)
[2021-10-19 09:44] LABS: ANION GAP 8 mmol/L (8-16); CALCIUM, TOTAL 9.5 mg/dL (8.8-10.5); CARBON DIOXIDE 30 mmol/L (22-29); CHLORIDE 101 mmol/L (98-107); CREATININE 0.52 mg/dL (0.60-1.30); GLUCOSE,RANDOM 143 mg/dL (70-110); SODIUM SERUM 139 mmol/L (136-145); UREA NITROGEN, BLOOD 14 mg/dL (7-18)
[2021-10-19 09:45] LABS: GLOMERULAR FILTR. RATE CALC > 60 mL/min (>60)
[2021-10-19 11:48] VITALS: BP 102/68
[2021-10-19] MEDS ORDERED: GABAPENTIN 400 MG CAPSULE PO SCH (16:00)
[2021-10-19 18:41] LABS: GLUCOMETER DEV NAME(LOC) 5S.2B; GLUCOSE,POINT OF CARE 145 MG/DL (70-110)
[2021-10-19] MEDS ORDERED: DIVALPROEX SODIUM 500 MG DR TABLET PO SCH (21:00)
[2021-10-20] MEDS ORDERED: LEVOFLOXACIN 500 MG TABLET PO SCH (09:00)
== END 2021-10-19 15:25 | disposition home or self-care (01) | DRG 871 ==
LOC: EMS 13:35 → 5N 17:52
PROVIDERS: ADMIT Internal Medicine; ATTEND Internal Medicine
DX: A41.9 Sepsis, unspecified organism (principal); G93.41 Metabolic encephalopathy; J69.0 Pneumonitis due to inhalation of food and vomit; J96.01 Acute respiratory failure with hypoxia; E44.0 Moderate protein-calorie malnutrition; E87.3 Alkalosis; Z68.21 Body mass index [BMI] 21.0-21.9, adult; E11.9 Type 2 diabetes mellitus without complications; I11.0 Hypertensive heart disease with heart failure; K21.9 Gastro-esophageal reflux disease without esophagitis; F25.9 Schizoaffective disorder, unspecified; J44.9 Chronic obstructive pulmonary disease, unspecified; Z20.822 Contact with and (suspected) exposure to COVID-19; Z95.2 Presence of prosthetic heart valve; Q24.9 Congenital malformation of heart, unspecified; Z87.891 Personal history of nicotine dependence; Z95.1 Presence of aortocoronary bypass graft; Z88.0 Allergy status to penicillin; Z88.2 Allergy status to sulfonamides; Z98.51 Tubal ligation status
CPT/HCPCS: 51702; 70496; 70498; 71045; 80048; 80053; 81003; 82140; 82962; 83605; 83880; 84484; 85025; 85610; 85730; 87040; 87081; 92610; 93005; 99291; J0131; J1644; J1956; J3490; J7030; J7050; Q9967; 36415-L1; 36415-TC; J7613; U0003

== ENCOUNTER 2021-12-20 18:19 | Inpatient (IN) | payer MEDICARE, MEDICAID ==
[~2021-12-20] VITALS: Ht 162.6 cm; Wt 66.7 kg
[~2021-12-20 18:19] MED LIST changes: -AMIO200 PO; -AMIO200T68 PO; -FURO20 PO; -IPRA3S NASAL; +MAGN-169 PO; -MELA3TAB89 PO; -METO25XL PO; -MOM30 PO; -NICO-650 TP; -OXYB-34 PO
[2021-12-20] MEDS ORDERED: SODIUM CHLORIDE 0.9% 2,000 ML IV ONE (19:00)
[2021-12-20 19:20] LABS: BASOPHILS % (AUTO) 0.4 % (0.0-2.0); EOSINOPHILS % (AUTO) 0.7 % (1.0-6.0); HEMOGLOBIN 12.5 g/dL (12.0-16.0); LYMPHOCYTES # (AUTO) 0.6 K/uL (1.0-4.8); LYMPHOCYTES % (AUTO) 9.2 % (22.0-44.0); MEAN CORPUSCULAR HEMOGLOBIN 34.8 pg (26.0-34.0); MEAN CORPUSCULAR HGB CONC 33.9 G/dL (31.0-37.0); MEAN CORPUSCULAR VOLUME 103 fL (80-100); MONOCYTES # (AUTO) 1.5 K/uL (0.1-1.0); MONOCYTES % (AUTO) 22.3 % (2.0-9.0); NEUTROPHILS # (AUTO) 4.6 K/uL (1.8-7.7); NEUTROPHILS % (AUTO) 67.4 % (40.0-70.0); PLATELET COUNT (AUTO) 164 K/uL (150-450); RED BLOOD CELL COUNT(AUTO) 3.61 MIL/uL (4.00-5.20); RED CELL DISTRIBUTION WIDTH 14.2 % (11.5-14.5)
[2021-12-20 19:30] LABS: ANION GAP 7 mmol/L (8-16); CALCIUM, TOTAL 8.9 mg/dL (8.8-10.5); CARBON DIOXIDE 36 mmol/L (22-29); CHLORIDE 98 mmol/L (98-107); CREATININE 0.64 mg/dL (0.60-1.30); GLOMERULAR FILTR. RATE CALC > 60 mL/min (>60); GLUCOSE,RANDOM 125 mg/dL (70-110); POTASSIUM 4.1 mmol/L (3.5-5.1); SODIUM SERUM 141 mmol/L (136-145); UREA NITROGEN, BLOOD 11 mg/dL (7-18)
[2021-12-20] MEDS ORDERED: LORazepam 2 MG/ML VIAL IVP ONE ×2 (19:30→20:00)
[2021-12-20] MEDS ORDERED: CefTRIAXone 1 GM/DEXTROSE 50 ML IV ONE (19:30)
[2021-12-20 19:35] LABS: ALANINE AMINOTRANSFERASE 7 U/L (12-78); ALBUMIN 2.7 g/dL (3.4-5.0); ALKALINE PHOSPHATASE 55 U/L (46-116); ASPARTATE AMINOTRANSFERASE 10 U/L (15-37); BILIRUBIN,TOTAL 0.2 mg/dL (0.1-1.0); LIPASE 50 U/L (73-393); TOTAL PROTEIN, SERUM 7.8 g/dL (6.4-8.2)
[2021-12-20 19:37] LABS: B-TYPE NATRIURETIC PEPTIDE 660 pg/mL (0-100)
[2021-12-20 19:41] LABS: LACTIC ACID 1.8 mmol/L (0.4-2.0)
[2021-12-20] MEDS ORDERED: ONDANSETRON HCL 4 MG/2 ML VIAL IVP PRN (20:15)
[2021-12-20] MEDS ORDERED: ACETAMINOPHEN 325 MG TABLET PO PRN (20:15)
[2021-12-20 20:36] LABS: COVID AG,FIA SOURCE NASOPHARYNGEAL
[2021-12-20 20:39] LABS: APPEARANCE,URINE CLEAR (CLEAR); BILIRUBIN,URINE NEGATIVE (NEGATIVE); GLUCOSE, URINE (UA) NEGATIVE (NEGATIVE); KETONES,URINE NEGATIVE (NEGATIVE); LEUKOCYTE ESTERASE ,URINE NEGATIVE (NEGATIVE); NITRATE,URINE NEGATIVE (NEGATIVE); OCCULT BLOOD,URINE NEGATIVE (NEGATIVE); PROTEIN,URINE NEGATIVE (NEGATIVE); UROBILINOGEN,URINE <=1.0 mg/dL (<=1.0)
[2021-12-20] MEDS ORDERED: HYDROmorphone 2 MG/ML VIAL IVP ONE (20:45)
[2021-12-20 21:18] LABS: BACTERIA,URINE None Seen /HPF (None Seen); RBC,URINE None Seen /HPF (0-2); WBC,URINE 0-2 /HPF (0-5)
[2021-12-20] MEDS ORDERED: RINGERS SOLUTION,LACTATED 1,000 ML IV ONE (21:30)
[2021-12-20] MEDS ORDERED: ALBUTEROL SULFATE HFA 90 MCG/PUFF 8 GM INHALER IH PRN (21:30)
[2021-12-20] MEDS ORDERED: MAGNESIUM HYDROXIDE SUSPENSION 30 ML UDCUP PO PRN (21:30)
[2021-12-20] MEDS ORDERED: BISACODYL 5 MG EC TABLET PO PRN (21:30)
[2021-12-20] MEDS: RINGERS SOLUTION,LACTATED 1,000 ML IV SCH (21:57)
[2021-12-20] MEDS: METOPROLOL SUCCINATE 50 MG ER TABLET PO SCH (22:00)
[2021-12-20 23:06] VITALS: BP 102/76
[2021-12-21] MEDS ORDERED: SODIUM CHLORIDE 0.9% 100 ML ONE (00:24)
[2021-12-21] MEDS ORDERED: IOHEXOL 350 MG/ML 100 ML VIAL ONE (00:24)
[2021-12-21] MEDS ORDERED: DILTIAZEM HCL 5 MG/ML 5 ML VIAL IVP STA (02:02)
[2021-12-21] MEDS: HEPARIN SODIUM,PORCINE 5,000 UNITS/ML VIAL SQ SCH ×4 (02:54→23:31)
[2021-12-21] MEDS ORDERED: METOPROLOL TARTRATE 5 MG/5 ML VIAL IVP STA (03:07)
[2021-12-21] MEDS ORDERED: DIGOXIN 250 MCG/ML 2 ML AMP IVP STA (05:02)
[2021-12-21 06:13] VITALS: BP 109/80
[2021-12-21 06:16] LABS: GLUCOMETER DEV NAME(LOC) 5S.1B; GLUCOSE,POINT OF CARE 155 MG/DL (70-110)
[2021-12-21] MEDS ORDERED: LORazepam 2 MG/ML VIAL IVP ONE (06:30)
[2021-12-21] MEDS ORDERED: MAGNESIUM SULFATE 2 GM/WATER 50 ML IV ONE (08:00)
[2021-12-21] MEDS ORDERED: SODIUM CHLORIDE 0.9% 500 ML IV ONE ×2 (08:14→08:30)
[2021-12-21] MEDS ORDERED: ADENOSINE 3 MG/ML 2 ML VIAL IVP ONE (08:30)
[2021-12-21 08:43] VITALS: BP 137/76
[2021-12-21] MEDS ORDERED: AMIODARONE HCL 360 MG in DEXTROSE 5%-WATER 242.8 ML IV ONE (09:00)
[2021-12-21] MEDS: GABAPENTIN 400 MG CAPSULE PO SCH ×3 (09:00→20:02)
[2021-12-21] MEDS: DIVALPROEX SODIUM 500 MG DR TABLET PO SCH ×2 (09:00→20:02)
[2021-12-21] MEDS: THIAMINE 100 MG TABLET PO SCH (09:00)
[2021-12-21] MEDS: CHOLECALCIFEROL (VIT D3) 5,000 [125 MCG] UNITS CAPSULE PO SCH (09:00)
[2021-12-21] MEDS: QUEtiapine FUMARATE 100 MG TABLET PO SCH (09:00)
[2021-12-21] MEDS: ASPIRIN 81 MG CHEWABLE TABLET PO SCH (09:00)
[2021-12-21] MEDS: SENNA 218 MG/5 ML LIQUID ORAL.SYG PO SCH ×2 (09:00→12:00)
[2021-12-21] MEDS: DOCUSATE SODIUM 250 MG CAPSULE PO SCH ×2 (09:00→20:02)
[2021-12-21] MEDS: FOLIC ACID 0.4 MG TABLET PO SCH (09:00)
[2021-12-21] MEDS ORDERED: AMIODARONE HCL 150 MG in DEXTROSE 5%-WATER 97 ML IV ONE (09:00)
[2021-12-21] MEDS ORDERED: DIGOXIN 250 MCG/ML 2 ML AMP IVP ONE (11:30)
[2021-12-21 11:35] VITALS: BP 133/68
[2021-12-21] MEDS ORDERED: SODIUM CHLORIDE 0.9% 1,000 ML ONE (12:02)
[2021-12-21] MEDS: RINGERS SOLUTION,LACTATED 1,000 ML IV SCH ×2 (12:03→23:30)
[2021-12-21] MEDS ORDERED: AMIODARONE HCL 540 MG in DEXTROSE 5%-WATER 239.2 ML IV ONE (15:00)
[2021-12-21 15:40] VITALS: BP 153/102
[2021-12-21] MEDS: LORazepam 2 MG/ML VIAL IVP PRN (16:08)
[2021-12-21] MEDS ORDERED: SENNA 218 MG/5 ML LIQUID ORAL.SYG PO SCH (17:37)
[2021-12-21 19:50] VITALS: BP 146/87
[2021-12-21] MEDS: TraZODone HCL 150 MG TABLET PO SCH (20:02)
[2021-12-21] MEDS: SIMVASTATIN 20 MG TABLET PO SCH (20:03)
[2021-12-21] MEDS: METOPROLOL SUCCINATE 50 MG ER TABLET PO SCH (20:03)
[2021-12-21 23:55] VITALS: BP 136/74
[2021-12-22 03:45] VITALS: BP 160/79
[2021-12-22 07:54] VITALS: BP 151/87
[2021-12-22] MEDS ORDERED: SODIUM CHLORIDE 0.9% 100 ML ONE (08:35)
[2021-12-22] MEDS: HEPARIN SODIUM,PORCINE 5,000 UNITS/ML VIAL SQ SCH ×2 (08:37→16:08)
[2021-12-22] MEDS: RINGERS SOLUTION,LACTATED 1,000 ML IV SCH ×2 (08:37→19:08)
[2021-12-22] MEDS: ASPIRIN 81 MG CHEWABLE TABLET PO SCH (09:00)
[2021-12-22] MEDS: THIAMINE 100 MG TABLET PO SCH (09:00)
[2021-12-22] MEDS: FOLIC ACID 0.4 MG TABLET PO SCH (09:00)
[2021-12-22] MEDS: QUEtiapine FUMARATE 100 MG TABLET PO SCH (09:00)
[2021-12-22] MEDS: CHOLECALCIFEROL (VIT D3) 5,000 [125 MCG] UNITS CAPSULE PO SCH (09:00)
[2021-12-22] MEDS: DOCUSATE SODIUM 250 MG CAPSULE PO SCH ×2 (09:00→20:38)
[2021-12-22] MEDS: GABAPENTIN 400 MG CAPSULE PO SCH ×3 (09:00→20:38)
[2021-12-22] MEDS: SENNA 218 MG/5 ML LIQUID ORAL.SYG PO SCH ×2 (09:00→11:33)
[2021-12-22] MEDS: DIVALPROEX SODIUM 500 MG DR TABLET PO SCH ×2 (09:00→20:38)
[2021-12-22] MEDS: AMIODARONE HCL 750 MG in DEXTROSE 5%-WATER 485 ML IV SCH (10:38)
[2021-12-22 12:01] VITALS: BP 120/90
[2021-12-22] MEDS: LORazepam 2 MG/ML VIAL IVP PRN (16:09)
[2021-12-22 16:10] VITALS: BP 150/100
[2021-12-22 19:42] VITALS: BP 142/94
[2021-12-22] MEDS: TraZODone HCL 150 MG TABLET PO SCH (20:38)
[2021-12-22] MEDS: SIMVASTATIN 20 MG TABLET PO SCH (20:39)
[2021-12-22] MEDS: METOPROLOL SUCCINATE 50 MG ER TABLET PO SCH (20:39)
[2021-12-22 21:55] LABS: GLUCOMETER DEV NAME(LOC) 5N.1C; GLUCOSE,POINT OF CARE 177 MG/DL (70-110)
[2021-12-22 23:36] VITALS: BP 141/92
[2021-12-23] MEDS: RINGERS SOLUTION,LACTATED 1,000 ML IV SCH ×3 (00:41→21:50)
[2021-12-23] MEDS: HEPARIN SODIUM,PORCINE 5,000 UNITS/ML VIAL SQ SCH ×4 (00:42→23:55)
[2021-12-23 04:01] VITALS: BP 127/87
[2021-12-23 06:46] LABS: GLUCOMETER DEV NAME(LOC) 5N.3; GLUCOSE,POINT OF CARE 151 MG/DL (70-110)
[2021-12-23 07:31] VITALS: BP 130/74
[2021-12-23] MEDS: LORazepam 2 MG/ML VIAL IVP PRN (08:42)
[2021-12-23] MEDS: DOCUSATE SODIUM 250 MG CAPSULE PO SCH ×2 (09:00→21:00)
[2021-12-23] MEDS: CHOLECALCIFEROL (VIT D3) 5,000 [125 MCG] UNITS CAPSULE PO SCH (09:00)
[2021-12-23] MEDS: AMIODARONE HCL 750 MG in DEXTROSE 5%-WATER 485 ML IV SCH (09:00)
[2021-12-23] MEDS: THIAMINE 100 MG TABLET PO SCH (10:51)
[2021-12-23] MEDS: DIVALPROEX SODIUM 500 MG DR TABLET PO SCH ×2 (10:51→21:00)
[2021-12-23] MEDS: QUEtiapine FUMARATE 100 MG TABLET PO SCH (10:51)
[2021-12-23] MEDS: SENNA 218 MG/5 ML LIQUID ORAL.SYG PO SCH ×2 (10:52→11:07)
[2021-12-23] MEDS: GABAPENTIN 400 MG CAPSULE PO SCH (10:52)
[2021-12-23] MEDS: FOLIC ACID 0.4 MG TABLET PO SCH (10:52)
[2021-12-23] MEDS: ASPIRIN 81 MG CHEWABLE TABLET PO SCH (10:52)
[2021-12-23] MEDS ORDERED: SENN-277 PO (11:35)
[2021-12-23 11:39] VITALS: BP 116/68
[2021-12-23] MEDS: METOPROLOL TARTRATE 25 MG TABLET PO SCH ×2 (11:54→21:50)
[2021-12-23 14:29] LABS: BASOPHILS % (AUTO) 0.4 % (0.0-2.0); EOSINOPHILS % (AUTO) 0.2 % (1.0-6.0); HEMATOCRIT 32.3 % (36-46); LYMPHOCYTES # (AUTO) 0.9 K/uL (1.0-4.8); LYMPHOCYTES % (AUTO) 32.6 % (22.0-44.0); MEAN CORPUSCULAR HEMOGLOBIN 34.9 pg (26.0-34.0); MEAN CORPUSCULAR HGB CONC 34.1 G/dL (31.0-37.0); MEAN CORPUSCULAR VOLUME 102 fL (80-100); MONOCYTES # (AUTO) 0.7 K/uL (0.1-1.0); MONOCYTES % (AUTO) 24.7 % (2.0-9.0); NEUTROPHILS # (AUTO) 1.2 K/uL (1.8-7.7); NEUTROPHILS % (AUTO) 42.1 % (40.0-70.0); RED BLOOD CELL COUNT(AUTO) 3.16 MIL/uL (4.00-5.20); RED CELL DISTRIBUTION WIDTH 14.1 % (11.5-14.5)
[2021-12-23 14:34] LABS: PLATELET COUNT (AUTO) 134 K/uL (150-450)
[2021-12-23 14:44] LABS: ANION GAP 2 mmol/L (8-16); CALCIUM, TOTAL 8.8 mg/dL (8.8-10.5); CARBON DIOXIDE 33 mmol/L (22-29); CHLORIDE 106 mmol/L (98-107); GLOMERULAR FILTR. RATE CALC > 60 mL/min (>60); GLUCOSE,RANDOM 154 mg/dL (70-110); POTASSIUM 3.8 mmol/L (3.5-5.1); SODIUM SERUM 141 mmol/L (136-145); UREA NITROGEN, BLOOD 5 mg/dL (7-18)
[2021-12-23 14:57] LABS: CREATININE < 0.15 mg/dL (0.60-1.30)
[2021-12-23 15:35] VITALS: BP 128/73
[2021-12-23 19:44] VITALS: BP 141/83
[2021-12-23] MEDS: SIMVASTATIN 20 MG TABLET PO SCH (21:50)
[2021-12-23] MEDS: TraZODone HCL 150 MG TABLET PO SCH (21:57)
[2021-12-23 23:25] VITALS: BP 104/60
[2021-12-23] MEDS ORDERED: ACETYLCYSTEINE 10% 100 MG/ML 4 ML NEB SOLUTION NEB ONE (23:30)
[2021-12-24] MEDS ORDERED: ALBUTEROL SULFATE 2.5 MG/0.5 ML NEB SOLUTION NEB PRN
[2021-12-24 03:52] VITALS: BP 116/70
[2021-12-24] MEDS: RINGERS SOLUTION,LACTATED 1,000 ML IV SCH (06:34)
[2021-12-24 07:26] VITALS: BP 129/64
[2021-12-24 07:31] LABS: BASOPHILS % (AUTO) 0.7 % (0.0-2.0); EOSINOPHILS % (AUTO) 0.1 % (1.0-6.0); HEMOGLOBIN 10.9 g/dL (12.0-16.0); LYMPHOCYTES # (AUTO) 1.3 K/uL (1.0-4.8); LYMPHOCYTES % (AUTO) 35.6 % (22.0-44.0); MEAN CORPUSCULAR HGB CONC 34.2 G/dL (31.0-37.0); MEAN CORPUSCULAR VOLUME 102 fL (80-100); MONOCYTES # (AUTO) 0.8 K/uL (0.1-1.0); MONOCYTES % (AUTO) 21.5 % (2.0-9.0); NEUTROPHILS # (AUTO) 1.5 K/uL (1.8-7.7); NEUTROPHILS % (AUTO) 42.1 % (40.0-70.0); PLATELET COUNT (AUTO) 118 K/uL (150-450); RED BLOOD CELL COUNT(AUTO) 3.12 MIL/uL (4.00-5.20)
[2021-12-24] MEDS: DOCUSATE SODIUM 250 MG CAPSULE PO SCH (07:38)
[2021-12-24] MEDS: SENNA 218 MG/5 ML LIQUID ORAL.SYG PO SCH ×2 (07:39→12:00)
[2021-12-24] MEDS: HEPARIN SODIUM,PORCINE 5,000 UNITS/ML VIAL SQ SCH ×2 (07:42→15:04)
[2021-12-24 07:43] LABS: ANION GAP 7 mmol/L (8-16); CALCIUM, TOTAL 8.6 mg/dL (8.8-10.5); CARBON DIOXIDE 31 mmol/L (22-29); CHLORIDE 105 mmol/L (98-107); CREATININE 0.53 mg/dL (0.60-1.30); GLUCOSE,RANDOM 126 mg/dL (70-110); POTASSIUM 3.7 mmol/L (3.5-5.1); SODIUM SERUM 143 mmol/L (136-145); UREA NITROGEN, BLOOD 8 mg/dL (7-18)
[2021-12-24 07:49] LABS: GLOMERULAR FILTR. RATE CALC > 60 mL/min (>60)
[2021-12-24] MEDS: ASPIRIN 81 MG CHEWABLE TABLET PO SCH (08:01)
[2021-12-24] MEDS: DIVALPROEX SODIUM 500 MG DR TABLET PO SCH ×2 (08:01→20:16)
[2021-12-24] MEDS: METOPROLOL TARTRATE 25 MG TABLET PO SCH ×2 (08:02→20:16)
[2021-12-24] MEDS: FOLIC ACID 0.4 MG TABLET PO SCH (08:02)
[2021-12-24] MEDS: CHOLECALCIFEROL (VIT D3) 5,000 [125 MCG] UNITS CAPSULE PO SCH (08:02)
[2021-12-24] MEDS: THIAMINE 100 MG TABLET PO SCH (08:02)
[2021-12-24 10:52] LABS: GLUCOMETER DEV NAME(LOC) 5N.1C; GLUCOSE,POINT OF CARE 211 MG/DL (70-110)
[2021-12-24 11:31] VITALS: BP 126/78
[2021-12-24] MEDS ORDERED: FUROSEMIDE 20 MG/2 ML VIAL IVP ONE (12:00)
[2021-12-24] MEDS ORDERED: SCOPOLAMINE HYDROBROMIDE 1 MG/72 HOUR PATCH TD SCH (12:00)
[2021-12-24] MEDS: LEVOFLOXACIN 750 MG TABLET PO SCH (12:28)
[2021-12-24] MEDS: CLINDAMYCIN HCL 300 MG CAPSULE PO SCH ×2 (12:28→17:47)
[2021-12-24 13:48] LABS: ABG BASE EXCESS 4.4 mmol/L (-2.0-3.0); ABG CARBOXYHEMOGLOBIN 0.2 % (0.0-1.5); ABG HCO3 28.2 mmol/L (22.0-26.0); ABG METHEMOGLOBIN 0.3 % (0.0-1.5); ABG OXYGEN CONTENT 15.7 mL/dL (15.0-23.0); ABG OXYGEN SATURATION 93.5 % (95.0-98.0); ABG PCO2 39 mmHg (35-45); ABG PH 7.479 (7.35-7.450); O2 DEVICE,BLOOD GAS ROOM AIR (ROOM AIR); PO2, ARTERIAL BG 64.7 mmHg (84.0-92.0); SITE, BLOOD GAS RT RADIAL; SOURCE, BLOOD GAS ARTERIAL; TEMPERATURE, FAHRENHEIT, BG 98.6 FAHREN (96.0-98.6)
[2021-12-24 15:02] VITALS: BP 117/66
[2021-12-24 20:15] VITALS: BP 137/71
[2021-12-24] MEDS: TraZODone HCL 150 MG TABLET PO SCH (20:16)
[2021-12-24] MEDS: SIMVASTATIN 20 MG TABLET PO SCH (20:16)
[2021-12-25] VITALS: BP 114/74
[2021-12-25] MEDS: CLINDAMYCIN HCL 300 MG CAPSULE PO SCH ×2 (03:25→08:29)
[2021-12-25] MEDS: HEPARIN SODIUM,PORCINE 5,000 UNITS/ML VIAL SQ SCH ×2 (03:25→08:29)
[2021-12-25 04:08] VITALS: BP 117/64
[2021-12-25 07:18] VITALS: BP 103/82
[2021-12-25 07:18] LABS: BASOPHILS % (AUTO) 0.2 % (0.0-2.0); EOSINOPHILS % (AUTO) 0.3 % (1.0-6.0); HEMATOCRIT 34.5 % (36-46); HEMOGLOBIN 11.6 g/dL (12.0-16.0); LYMPHOCYTES # (AUTO) 1.4 K/uL (1.0-4.8); LYMPHOCYTES % (AUTO) 37.6 % (22.0-44.0); MEAN CORPUSCULAR HEMOGLOBIN 34.7 pg (26.0-34.0); MEAN CORPUSCULAR HGB CONC 33.5 G/dL (31.0-37.0); MEAN CORPUSCULAR VOLUME 104 fL (80-100); MONOCYTES # (AUTO) 0.7 K/uL (0.1-1.0); MONOCYTES % (AUTO) 20.3 % (2.0-9.0); NEUTROPHILS # (AUTO) 1.5 K/uL (1.8-7.7); NEUTROPHILS % (AUTO) 41.6 % (40.0-70.0); PLATELET COUNT (AUTO) 123 K/uL (150-450); RED BLOOD CELL COUNT(AUTO) 3.33 MIL/uL (4.00-5.20); RED CELL DISTRIBUTION WIDTH 13.9 % (11.5-14.5)
[2021-12-25 07:28] LABS: ANION GAP 9 mmol/L (8-16); CALCIUM, TOTAL 8.8 mg/dL (8.8-10.5); CARBON DIOXIDE 30 mmol/L (22-29); CHLORIDE 105 mmol/L (98-107); CREATININE 0.44 mg/dL (0.60-1.30); GLUCOSE,RANDOM 149 mg/dL (70-110); POTASSIUM 3.8 mmol/L (3.5-5.1); SODIUM SERUM 144 mmol/L (136-145); UREA NITROGEN, BLOOD 8 mg/dL (7-18)
[2021-12-25 07:29] LABS: GLOMERULAR FILTR. RATE CALC > 60 mL/min (>60)
[2021-12-25] MEDS: DIVALPROEX SODIUM 500 MG DR TABLET PO SCH (08:29)
[2021-12-25] MEDS: ASPIRIN 81 MG CHEWABLE TABLET PO SCH (08:30)
[2021-12-25] MEDS: THIAMINE 100 MG TABLET PO SCH (08:30)
[2021-12-25] MEDS: CHOLECALCIFEROL (VIT D3) 5,000 [125 MCG] UNITS CAPSULE PO SCH (08:30)
[2021-12-25] MEDS: LEVOFLOXACIN 750 MG TABLET PO SCH (08:30)
[2021-12-25] MEDS: METOPROLOL TARTRATE 25 MG TABLET PO SCH (08:30)
[2021-12-25] MEDS: FOLIC ACID 0.4 MG TABLET PO SCH (08:31)
[2021-12-25] MEDS ORDERED: CLIN300C58 PO (10:27)
[2021-12-25] MEDS ORDERED: METO25 PO (10:27)
[2021-12-25] MEDS ORDERED: LEVO750T68 PO (10:27)
[2021-12-25] MEDS ORDERED: AUD NEB (10:27)
[2021-12-25] MEDS ORDERED: FUROSEMIDE 20 MG/2 ML VIAL IVP ONE (10:30)
[2021-12-25 10:53] VITALS: BP 109/70
[2021-12-25] MEDS: LORazepam 2 MG/ML VIAL IVP PRN (11:38)
[2021-12-25] MEDS ORDERED: FUROSEMIDE 20 MG TABLET PO ONE (12:15)
== END 2021-12-25 15:30 | disposition home or self-care (01) | DRG 871 ==
LOC: EMS 18:21 → 5S 20:03
PROVIDERS: ADMIT Internal Medicine; ATTEND Internal Medicine
DX: A41.9 Sepsis, unspecified organism (principal); G93.41 Metabolic encephalopathy; J69.0 Pneumonitis due to inhalation of food and vomit; J96.91 Respiratory failure, unspecified with hypoxia; R65.21 Severe sepsis with septic shock; E44.0 Moderate protein-calorie malnutrition; I47.1 Supraventricular tachycardia; E11.9 Type 2 diabetes mellitus without complications; I11.0 Hypertensive heart disease with heart failure; F31.9 Bipolar disorder, unspecified; E78.5 Hyperlipidemia, unspecified; F25.9 Schizoaffective disorder, unspecified; I35.0 Nonrheumatic aortic (valve) stenosis; Z20.822 Contact with and (suspected) exposure to COVID-19; I48.91 Unspecified atrial fibrillation; I50.9 Heart failure, unspecified; Z87.891 Personal history of nicotine dependence; Z95.1 Presence of aortocoronary bypass graft; Z68.25 Body mass index [BMI] 25.0-25.9, adult; Z79.899 Other long term (current) drug therapy; Z88.5 Allergy status to narcotic agent; Z88.8 Allergy status to other drugs, medicaments and biological substances; Z88.0 Allergy status to penicillin; Z98.51 Tubal ligation status; Z79.82 Long term (current) use of aspirin
CPT/HCPCS: 36600; 51702; 70450; 71045; 80048; 80053; 81001; 82805; 82962; 83605; 83690; 83735; 83880; 84134; 84484; 85025; 85379; 87040; 92526; 92610; 93005; 93306; 94640; 94799; 99291; J0153; J0282; J0696; J1160; J1644; J1940; J2060; J3475; J3490; J7030; J7040; J7050; J7060; J7120; Q9967; 36415-L1; 36415-TC; J7613

== ENCOUNTER 2022-03-22 16:52 | Inpatient (IN) | payer MEDICARE, MEDICAID ==
[~2022-03-22] VITALS: Ht 165.1 cm; Wt 56.4 kg
[~2022-03-22 16:52] MED LIST changes: +AUD NEB; +CLIN300C58 PO; -GABA-1201 PO; +LEVO750T68 PO; -MAGN-169 PO; -METO-558 PO; +METO25 PO; -QUET100T PO; +SENN-277 PO; -SENN8.8S18 PO
[2022-03-22] MEDS ORDERED: SODIUM CHLORIDE 0.9% 2,150 ML IV ONE (18:15)
[2022-03-22] MEDS ORDERED: 0.9% SODIUM CHLORIDE 10 ML SYRINGE IVP PRN (18:15)
[2022-03-22] MEDS ORDERED: ACETAMINOPHEN 1000 MG/ISO-OSM 100 ML IV ONE (18:15)
[2022-03-22] MEDS ORDERED: QUET100T PO (18:17)
[2022-03-22] MEDS ORDERED: TRAZ150T80 PO (18:17)
[2022-03-22] MEDS ORDERED: GABA-1201 PO (18:17)
[2022-03-22] MEDS ORDERED: OXYB5TAB20 PO (18:17)
[2022-03-22] MEDS ORDERED: SIMV-260 PO (18:17)
[2022-03-22] MEDS ORDERED: FURO20 PO (18:17)
[2022-03-22] MEDS ORDERED: VANCOMYCIN 1GM/WATER(PEG/NADA) 200 ML IV ONE (19:00)
[2022-03-22] MEDS ORDERED: LEVOFLOXACIN 750 MG/D5% WATER 150 ML IV ONE (19:00)
[2022-03-22 19:02] LABS: BASOPHILS % (AUTO) 0.2 % (0.0-2.0); EOSINOPHILS % (AUTO) 0 % (1.0-6.0); HEMATOCRIT 35.5 % (36-46); HEMOGLOBIN 12.1 g/dL (12.0-16.0); LYMPHOCYTES # (AUTO) 0.6 K/uL (1.0-4.8); LYMPHOCYTES % (AUTO) 4.2 % (22.0-44.0); MEAN CORPUSCULAR HEMOGLOBIN 33.9 pg (26.0-34.0); MEAN CORPUSCULAR VOLUME 99 fL (80-100); MONOCYTES # (AUTO) 3.2 K/uL (0.1-1.0); NEUTROPHILS # (AUTO) 11.2 K/uL (1.8-7.7); NEUTROPHILS % (AUTO) 74.3 % (40.0-70.0); PLATELET COUNT (AUTO) 145 K/uL (150-450); RED BLOOD CELL COUNT(AUTO) 3.57 MIL/uL (4.00-5.20); RED CELL DISTRIBUTION WIDTH 14.8 % (11.5-14.5)
[2022-03-22 19:10] LABS: ANION GAP 5 mmol/L (8-16); CALCIUM, TOTAL 9.3 mg/dL (8.8-10.5); CARBON DIOXIDE 31 mmol/L (22-29); CHLORIDE 92 mmol/L (98-107); CREATININE 0.58 mg/dL (0.60-1.30); GLUCOSE,RANDOM 241 mg/dL (70-110); POTASSIUM 3.8 mmol/L (3.5-5.1); SODIUM SERUM 128 mmol/L (136-145); UREA NITROGEN, BLOOD 13 mg/dL (7-18)
[2022-03-22 19:14] LABS: GLOMERULAR FILTR. RATE CALC > 60 mL/min (>60); INR 1.1 (0.9-1.1); MONOCYTES % (AUTO) 21.3 % (2.0-9.0); PROTHROMBIN TIME 11.8 SEC (9.4-11.6)
[2022-03-22 19:16] LABS: ALANINE AMINOTRANSFERASE 6 U/L (12-78); ALBUMIN 2.3 g/dL (3.4-5.0); ALKALINE PHOSPHATASE 52 U/L (46-116); ASPARTATE AMINOTRANSFERASE 9 U/L (15-37); BILIRUBIN,TOTAL 0.3 mg/dL (0.1-1.0); CREATINE KINASE, TOTAL ONLY 14 U/L (26-192); TOTAL PROTEIN, SERUM 7.9 g/dL (6.4-8.2)
[2022-03-22 19:18] LABS: LACTIC ACID 1.3 mmol/L (0.4-2.0)
[2022-03-22 19:24] LABS: B-TYPE NATRIURETIC PEPTIDE 833 pg/mL (0-100)
[2022-03-22 19:31] LABS: COVID AG,FIA SOURCE NASAL SWAB
[2022-03-22 19:50] LABS: INFLUENZA TYPE A NEGATIVE FOR TYPE A (NEGATIVE); INFLUENZA TYPE B NEGATIVE FOR TYPE B (NEGATIVE)
[2022-03-22 19:53] LABS: APPEARANCE,URINE TURBID (CLEAR); BILIRUBIN,URINE NEGATIVE (NEGATIVE); GLUCOSE, URINE (UA) 300-500 mg/dL (NEGATIVE); KETONES,URINE TRACE mg/dL (NEGATIVE); LEUKOCYTE ESTERASE ,URINE LARGE (NEGATIVE); NITRATE,URINE POSITIVE (NEGATIVE); OCCULT BLOOD,URINE MODERATE (NEGATIVE); PH,URINE 6.5 (5.0-8.0); PROTEIN,URINE 100-200,SEE CONFIRM mg/dL (NEGATIVE); SPECIFIC GRAVITIY, URINE 1.008 (1.003-1.030); UROBILINOGEN,URINE <=1.0 mg/dL (<=1.0)
[2022-03-22 20:00] LABS: BACTERIA,URINE Few /HPF (None Seen); SQUAMOUS EPITHELIAL CELL,UR Few /LPF (None Seen); WBC,URINE >100 /HPF (0-5)
[2022-03-22 20:02] LABS: SULFOSALICYLIC ACID,URINE 2+ (Negative)
[2022-03-22] MEDS ORDERED: ACETAMINOPHEN 325 MG TABLET PO PRN (20:15)
[2022-03-22] MEDS ORDERED: ONDANSETRON HCL 4 MG/2 ML VIAL IVP PRN (20:15)
[2022-03-22] MEDS ORDERED: BISACODYL 5 MG EC TABLET PO PRN (20:30)
[2022-03-22] MEDS ORDERED: *CLINICAL-LEVOFLOXACIN IVPB DOSING CLINICAL ONE (20:30)
[2022-03-22] MEDS ORDERED: ALBUTEROL SULFATE 2.5 MG/0.5 ML NEB SOLUTION NEB PRN (20:30)
[2022-03-22] MEDS: DIVALPROEX SODIUM 500 MG DR TABLET PO SCH (23:10)
[2022-03-22] MEDS: SIMVASTATIN 20 MG TABLET PO SCH (23:10)
[2022-03-22] MEDS: GABAPENTIN 400 MG CAPSULE PO SCH (23:10)
[2022-03-23] VITALS (8 sets, daily range): BP systolic 101–131; BP diastolic 55–92
[2022-03-23] MEDS: HEPARIN SODIUM,PORCINE 5,000 UNITS/ML VIAL SQ SCH ×3 (00:02→17:08)
[2022-03-23] MEDS ORDERED: DEXTROSE 50%-WATER 25 GM/50 ML SYRINGE IVP PRN (06:45)
[2022-03-23 08:28] LABS: D-DIMER 2.18 mg/L FEU (0.00-0.50); FIBRINOGEN 599 mg/dL (200-400)
[2022-03-23 08:31] LABS: FIBRIN SPLIT PRODUCTS GT >10 but LT <40 mcg/mL (<10)
[2022-03-23] MEDS: INSULIN GLARGINE,HUM.REC.ANLOG 100 UNITS/ML SQ SCH (09:00)
[2022-03-23] MEDS ORDERED: FUROSEMIDE 20 MG TABLET PO SCH (09:00)
[2022-03-23] MEDS: SENNA 187 MG TABLET PO SCH ×2 (09:25→12:24)
[2022-03-23] MEDS: ASPIRIN 81 MG CHEWABLE TABLET PO SCH (09:25)
[2022-03-23] MEDS: THIAMINE 100 MG TABLET PO SCH (09:25)
[2022-03-23] MEDS: GABAPENTIN 400 MG CAPSULE PO SCH ×3 (09:26→20:48)
[2022-03-23] MEDS: CHOLECALCIFEROL (VIT D3) 5,000 [125 MCG] UNITS CAPSULE PO SCH (09:26)
[2022-03-23] MEDS: DIVALPROEX SODIUM 500 MG DR TABLET PO SCH ×2 (09:27→20:45)
[2022-03-23] MEDS: OXYBUTYNIN CHLORIDE 5 MG TABLET PO SCH (09:27)
[2022-03-23] MEDS: FOLIC ACID 0.4 MG TABLET PO SCH (09:27)
[2022-03-23 14:37] LABS: BASOPHILS % (AUTO) 0.5 % (0.0-2.0); EOSINOPHILS % (AUTO) 0 % (1.0-6.0); HEMATOCRIT 36.4 % (36-46); HEMOGLOBIN 12.5 g/dL (12.0-16.0); LYMPHOCYTES # (AUTO) 0.9 K/uL (1.0-4.8); LYMPHOCYTES % (AUTO) 9.5 % (22.0-44.0); MEAN CORPUSCULAR HEMOGLOBIN 34.4 pg (26.0-34.0); MEAN CORPUSCULAR HGB CONC 34.3 G/dL (31.0-37.0); MEAN CORPUSCULAR VOLUME 101 fL (80-100); MONOCYTES # (AUTO) 1.3 K/uL (0.1-1.0); MONOCYTES % (AUTO) 14.4 % (2.0-9.0); NEUTROPHILS % (AUTO) 75.6 % (40.0-70.0); PLATELET COUNT (AUTO) 142 K/uL (150-450); RED BLOOD CELL COUNT(AUTO) 3.63 MIL/uL (4.00-5.20); RED CELL DISTRIBUTION WIDTH 15.1 % (11.5-14.5)
[2022-03-23 14:42] LABS: ALANINE AMINOTRANSFERASE 6 U/L (12-78); ALBUMIN 2.1 g/dL (3.4-5.0); ALKALINE PHOSPHATASE 50 U/L (46-116); ANION GAP 6 mmol/L (8-16); ASPARTATE AMINOTRANSFERASE 10 U/L (15-37); BILIRUBIN,TOTAL 0.1 mg/dL (0.1-1.0); CALCIUM, TOTAL 9.2 mg/dL (8.8-10.5); CARBON DIOXIDE 35 mmol/L (22-29); CHLORIDE 96 mmol/L (98-107); CREATININE 0.58 mg/dL (0.60-1.30); GLUCOSE,RANDOM 170 mg/dL (70-110); POTASSIUM 3.3 mmol/L (3.5-5.1); SODIUM SERUM 137 mmol/L (136-145); TOTAL PROTEIN, SERUM 7.7 g/dL (6.4-8.2); UREA NITROGEN, BLOOD 10 mg/dL (7-18)
[2022-03-23 14:46] LABS: GLOMERULAR FILTR. RATE CALC > 60 mL/min (>60)
[2022-03-23] MEDS ORDERED: POTASSIUM CHLORIDE 20 MEQ ER TABLET PO ONE (16:00)
[2022-03-23] MEDS: LEVOFLOXACIN 750 MG/D5% WATER 150 ML IV SCH (20:44)
[2022-03-23] MEDS: SIMVASTATIN 20 MG TABLET PO SCH (20:44)
[2022-03-23] MEDS: AMIODARONE HCL 200 MG TABLET PO SCH (20:44)
[2022-03-23] MEDS ORDERED: LEVOFLOXACIN 500 MG/D5% WATER 100 ML IV SCH (21:00)
[2022-03-24] MEDS: HEPARIN SODIUM,PORCINE 5,000 UNITS/ML VIAL SQ SCH ×4 (00:13→17:52)
[2022-03-24 04:06] VITALS: BP 132/77
[2022-03-24 06:11] LABS: GLUCOMETER DEV NAME(LOC) 5S.1B; GLUCOSE,POINT OF CARE 147 MG/DL (70-110)
[2022-03-24] MEDS: INSULIN LISPRO 100 UNITS/ML SQ PRN ×2 (06:20→12:47)
[2022-03-24 07:36] VITALS: BP 147/73
[2022-03-24 08:04] LABS: BASOPHILS % (AUTO) 0.1 % (0.0-2.0); EOSINOPHILS % (AUTO) 0 % (1.0-6.0); HEMATOCRIT 34.5 % (36-46); HEMOGLOBIN 11.7 g/dL (12.0-16.0); LYMPHOCYTES % (AUTO) 12.9 % (22.0-44.0); MEAN CORPUSCULAR HEMOGLOBIN 34.4 pg (26.0-34.0); MEAN CORPUSCULAR HGB CONC 33.8 G/dL (31.0-37.0); MEAN CORPUSCULAR VOLUME 102 fL (80-100); MONOCYTES # (AUTO) 1.8 K/uL (0.1-1.0); PLATELET COUNT (AUTO) 144 K/uL (150-450); RED BLOOD CELL COUNT(AUTO) 3.39 MIL/uL (4.00-5.20); RED CELL DISTRIBUTION WIDTH 14.9 % (11.5-14.5)
[2022-03-24 08:19] LABS: ALBUMIN 2.1 g/dL (3.4-5.0); ALKALINE PHOSPHATASE 56 U/L (46-116); ANION GAP 9 mmol/L (8-16); ASPARTATE AMINOTRANSFERASE 15 U/L (15-37); BILIRUBIN,TOTAL 0.3 mg/dL (0.1-1.0); CALCIUM, TOTAL 9.7 mg/dL (8.8-10.5); CARBON DIOXIDE 35 mmol/L (22-29); CHLORIDE 91 mmol/L (98-107); CREATININE 0.55 mg/dL (0.60-1.30); GLUCOSE,RANDOM 127 mg/dL (70-110); SODIUM SERUM 135 mmol/L (136-145); TOTAL PROTEIN, SERUM 7.8 g/dL (6.4-8.2); UREA NITROGEN, BLOOD 15 mg/dL (7-18)
[2022-03-24 08:22] LABS: GLOMERULAR FILTR. RATE CALC > 60 mL/min (>60)
[2022-03-24 08:40] LABS: ALANINE AMINOTRANSFERASE 8 U/L (12-78)
[2022-03-24] MEDS: GABAPENTIN 400 MG CAPSULE PO SCH ×3 (08:56→21:48)
[2022-03-24] MEDS: AMIODARONE HCL 200 MG TABLET PO SCH ×2 (08:57→21:48)
[2022-03-24] MEDS: THIAMINE 100 MG TABLET PO SCH (08:57)
[2022-03-24] MEDS: ASPIRIN 81 MG CHEWABLE TABLET PO SCH (08:57)
[2022-03-24] MEDS: FOLIC ACID 0.4 MG TABLET PO SCH (08:58)
[2022-03-24] MEDS: DIVALPROEX SODIUM 500 MG DR TABLET PO SCH ×2 (08:58→21:48)
[2022-03-24] MEDS: OXYBUTYNIN CHLORIDE 5 MG TABLET PO SCH (08:58)
[2022-03-24] MEDS: SENNA 187 MG TABLET PO SCH ×2 (08:58→12:46)
[2022-03-24] MEDS: CHOLECALCIFEROL (VIT D3) 5,000 [125 MCG] UNITS CAPSULE PO SCH (08:59)
[2022-03-24] MEDS: INSULIN GLARGINE,HUM.REC.ANLOG 100 UNITS/ML SQ SCH (09:31)
[2022-03-24 10:50] VITALS: BP 142/76
[2022-03-24 15:51] LABS: GLUCOMETER DEV NAME(LOC) 5S.2B; GLUCOSE,POINT OF CARE 159 MG/DL (70-110)
[2022-03-24 17:16] VITALS: BP 113/72
[2022-03-24 19:01] LABS: GLUCOMETER DEV NAME(LOC) 5S.2B; GLUCOSE,POINT OF CARE 99 MG/DL (70-110)
[2022-03-24 20:29] VITALS: BP 113/57
[2022-03-24] MEDS ORDERED: SODIUM CHLORIDE 0.9% 250 ML IV ONE (21:34)
[2022-03-24] MEDS: LEVOFLOXACIN 750 MG/D5% WATER 150 ML IV SCH (21:45)
[2022-03-24] MEDS: SIMVASTATIN 20 MG TABLET PO SCH (21:48)
[2022-03-24 22:46] LABS: GLUCOMETER DEV NAME(LOC) 5S.2B; GLUCOSE,POINT OF CARE 109 MG/DL (70-110)
[2022-03-24 23:30] VITALS: BP 118/55
[2022-03-25] MEDS: HEPARIN SODIUM,PORCINE 5,000 UNITS/ML VIAL SQ SCH ×3 (00:23→18:12)
[2022-03-25 05:41] VITALS: BP 132/67
[2022-03-25 08:33] VITALS: BP 141/81
[2022-03-25] MEDS: INSULIN GLARGINE,HUM.REC.ANLOG 100 UNITS/ML SQ SCH (09:00)
[2022-03-25 11:13] VITALS: BP 152/100
[2022-03-25] MEDS: GABAPENTIN 400 MG CAPSULE PO SCH ×3 (13:35→21:17)
[2022-03-25] MEDS: CHOLECALCIFEROL (VIT D3) 5,000 [125 MCG] UNITS CAPSULE PO SCH (13:36)
[2022-03-25] MEDS: FOLIC ACID 0.4 MG TABLET PO SCH (13:36)
[2022-03-25] MEDS: SENNA 187 MG TABLET PO SCH ×2 (13:36→18:12)
[2022-03-25] MEDS: THIAMINE 100 MG TABLET PO SCH (13:37)
[2022-03-25] MEDS: OXYBUTYNIN CHLORIDE 5 MG TABLET PO SCH (13:37)
[2022-03-25] MEDS: AMIODARONE HCL 200 MG TABLET PO SCH ×2 (13:37→21:17)
[2022-03-25] MEDS: ASPIRIN 81 MG CHEWABLE TABLET PO SCH (13:37)
[2022-03-25] MEDS: DIVALPROEX SODIUM 500 MG DR TABLET PO SCH ×2 (13:44→21:17)
[2022-03-25 15:48] VITALS: BP 144/63
[2022-03-25 20:21] LABS: GLUCOMETER DEV NAME(LOC) 5S.2B; GLUCOSE,POINT OF CARE 121 MG/DL (70-110)
[2022-03-25 20:24] VITALS: BP 101/49
[2022-03-25] MEDS: LEVOFLOXACIN 750 MG/D5% WATER 150 ML IV SCH (21:17)
[2022-03-25] MEDS: SIMVASTATIN 20 MG TABLET PO SCH (21:17)
[2022-03-26 00:08] VITALS: BP 97/55
[2022-03-26 01:26] LABS: GLUCOMETER DEV NAME(LOC) 5S.1B; GLUCOSE,POINT OF CARE 127 MG/DL (70-110)
[2022-03-26 04:54] VITALS: BP 97/60
[2022-03-26] MEDS: INSULIN LISPRO 100 UNITS/ML SQ PRN ×2 (06:30→16:54)
[2022-03-26 07:06] LABS: GLUCOMETER DEV NAME(LOC) 5S.1B; GLUCOSE,POINT OF CARE 168 MG/DL (70-110)
[2022-03-26 07:45] VITALS: BP 119/75
[2022-03-26] MEDS: HEPARIN SODIUM,PORCINE 5,000 UNITS/ML VIAL SQ SCH ×3 (08:00→16:00)
[2022-03-26] MEDS: THIAMINE 100 MG TABLET PO SCH (08:32)
[2022-03-26] MEDS: DIVALPROEX SODIUM 500 MG DR TABLET PO SCH (08:33)
[2022-03-26] MEDS: SENNA 187 MG TABLET PO SCH ×2 (08:33→11:24)
[2022-03-26] MEDS: FOLIC ACID 0.4 MG TABLET PO SCH (08:33)
[2022-03-26] MEDS: CHOLECALCIFEROL (VIT D3) 5,000 [125 MCG] UNITS CAPSULE PO SCH (08:33)
[2022-03-26] MEDS: OXYBUTYNIN CHLORIDE 5 MG TABLET PO SCH (08:33)
[2022-03-26] MEDS: GABAPENTIN 400 MG CAPSULE PO SCH ×2 (08:33→16:54)
[2022-03-26] MEDS: ASPIRIN 81 MG CHEWABLE TABLET PO SCH (08:33)
[2022-03-26] MEDS: AMIODARONE HCL 200 MG TABLET PO SCH (08:34)
[2022-03-26] MEDS: INSULIN GLARGINE,HUM.REC.ANLOG 100 UNITS/ML SQ SCH (08:38)
[2022-03-26 10:51] VITALS: BP 119/90
[2022-03-26 15:32] VITALS: BP 129/88
[2022-03-26] MEDS ORDERED: LEVO-72 PO (16:36)
[2022-03-26] MEDS ORDERED: CEPH-558 PO (18:28)
[2022-03-26 19:40] VITALS: BP 113/87
[2022-03-27 06:41] LABS: GLUCOMETER DEV NAME(LOC) 5S.1B; GLUCOSE,POINT OF CARE 161 MG/DL (70-110)
[2022-03-27 06:41] LABS: GLUCOMETER DEV NAME(LOC) 5S.1B; GLUCOSE,POINT OF CARE 122 MG/DL (70-110)
== END 2022-03-26 20:50 | disposition home or self-care (01) | DRG 871 ==
LOC: EMS 17:39 → ICU 03-23 01:39 → 5N 03-23 21:45 → 5S 03-25 19:00
PROVIDERS: ADMIT Internal Medicine; ATTEND Internal Medicine
PROC: CB121ZZ Planar Nuclear Medicine Imaging of Lungs and Bronchi using Technetium 99m (Tc-99m) (ICD-10-PCS; principal; 2022-03-24)
DX: A41.9 Sepsis, unspecified organism (principal); E43 Unspecified severe protein-calorie malnutrition; G92.8 Other toxic encephalopathy; N39.0 Urinary tract infection, site not specified; E87.1 Hypo-osmolality and hyponatremia; Z20.822 Contact with and (suspected) exposure to COVID-19; E11.9 Type 2 diabetes mellitus without complications; F20.9 Schizophrenia, unspecified; F31.9 Bipolar disorder, unspecified; I10 Essential (primary) hypertension; I35.0 Nonrheumatic aortic (valve) stenosis; F17.210 Nicotine dependence, cigarettes, uncomplicated; Z95.1 Presence of aortocoronary bypass graft; Z88.0 Allergy status to penicillin; Z88.2 Allergy status to sulfonamides; Z88.6 Allergy status to analgesic agent; Z68.20 Body mass index [BMI] 20.0-20.9, adult; Z81.8 Family history of other mental and behavioral disorders
CPT/HCPCS: 70450; 71045; 71250; 78582; 80053; 80164; 81001; 81002; 82550; 82962; 83605; 83880; 83930; 83935; 84145; 84300; 84484; 85025; 85362; 85379; 85384; 85610; 85730; 87040; 87081; 87086; 87186; 87804; 93005; 93306; 93970; 99291; A9539; A9540; J0131; J1644; J1815; J1956; J7030; J7050; Q9967; 36415-L1; 36415-TC; U0003

== ENCOUNTER 2022-04-11 16:52 | Inpatient (IN) | payer MEDICARE, MEDICAID ==
[~2022-04-11] VITALS: Ht 160 cm; Wt 61.3 kg
[~2022-04-11 16:52] MED LIST changes: +CEPH-558 PO; -CLIN300C58 PO; +FURO20 PO; +GABA-1201 PO; -LEVO750T68 PO; +OXYB5TAB20 PO; +QUET100T PO
[2022-04-11] MEDS ORDERED: ALBUTEROL SULFATE 2.5 MG/0.5 ML NEB SOLUTION NEB ONE (17:00)
[2022-04-11] MEDS ORDERED: ONDANSETRON HCL 4 MG/2 ML VIAL IVP ONE (17:00)
[2022-04-11] MEDS ORDERED: IPRATROPIUM BROMIDE 0.5 MG/2.5 ML NEB SOLUTION NEB ONE (17:00)
[2022-04-11] MEDS ORDERED: DEXAMETHASONE SOD PHOS 4 MG/ML VIAL IVP ONE (17:00)
[2022-04-11 17:41] LABS: BASOPHILS % (AUTO) 0.3 % (0.0-2.0); EOSINOPHILS % (AUTO) 0.4 % (1.0-6.0); HEMATOCRIT 39.5 % (36-46); HEMOGLOBIN 12.9 g/dL (12.0-16.0); LYMPHOCYTES # (AUTO) 2.2 K/uL (1.0-4.8); LYMPHOCYTES % (AUTO) 44.9 % (22.0-44.0); MEAN CORPUSCULAR HEMOGLOBIN 34.1 pg (26.0-34.0); MEAN CORPUSCULAR HGB CONC 32.5 G/dL (31.0-37.0); MEAN CORPUSCULAR VOLUME 105 fL (80-100); MONOCYTES # (AUTO) 0.5 K/uL (0.1-1.0); MONOCYTES % (AUTO) 10.9 % (2.0-9.0); NEUTROPHILS # (AUTO) 2.1 K/uL (1.8-7.7); NEUTROPHILS % (AUTO) 43.5 % (40.0-70.0); PLATELET COUNT (AUTO) 135 K/uL (150-450); RED BLOOD CELL COUNT(AUTO) 3.77 MIL/uL (4.00-5.20); RED CELL DISTRIBUTION WIDTH 15.4 % (11.5-14.5)
[2022-04-11 17:47] LABS: ANION GAP 3 mmol/L (8-16); CALCIUM, TOTAL 9.3 mg/dL (8.8-10.5); CARBON DIOXIDE 37 mmol/L (22-29); CHLORIDE 95 mmol/L (98-107); CREATININE 0.66 mg/dL (0.60-1.30); GLUCOSE,RANDOM 117 mg/dL (70-110); SODIUM SERUM 135 mmol/L (136-145); UREA NITROGEN, BLOOD 13 mg/dL (7-18)
[2022-04-11 17:48] LABS: GLOMERULAR FILTR. RATE CALC > 60 mL/min (>60)
[2022-04-11 17:52] LABS: ALANINE AMINOTRANSFERASE 8 U/L (12-78); ALBUMIN 2.9 g/dL (3.4-5.0); ALKALINE PHOSPHATASE 58 U/L (46-116); ASPARTATE AMINOTRANSFERASE 12 U/L (15-37); BILIRUBIN,TOTAL 0.2 mg/dL (0.1-1.0); CREATINE KINASE, TOTAL ONLY 40 U/L (26-192); TOTAL PROTEIN, SERUM 8.6 g/dL (6.4-8.2)
[2022-04-11 17:53] LABS: COVID AG,FIA SOURCE NASOPHARYNGEAL
[2022-04-11 17:58] LABS: B-TYPE NATRIURETIC PEPTIDE 758 pg/mL (0-100)
[2022-04-11 18:20] LABS: PROTHROMBIN TIME 10.9 SEC (9.4-11.6)
[2022-04-11] MEDS ORDERED: MetroNIDAZOLE 500 MG/NACL 100 ML IV ONE (18:30)
[2022-04-11] MEDS ORDERED: LEVOFLOXACIN 750 MG/D5% WATER 150 ML IV ONE (18:30)
[2022-04-11] MEDS ORDERED: SODIUM CHLORIDE 0.9% 1,000 ML IV ONE (18:45)
[2022-04-11] MEDS ORDERED: DILTIAZEM HCL 5 MG/ML 5 ML VIAL IVP ONE ×2 (18:45→19:45)
[2022-04-11] MEDS ORDERED: 0.9% SODIUM CHLORIDE 10 ML SYRINGE IVP PRN (19:45)
[2022-04-11] MEDS ORDERED: ACETAMINOPHEN 325 MG TABLET PO PRN ×2 (19:45→21:00)
[2022-04-11] MEDS ORDERED: FUROSEMIDE 40 MG/4 ML VIAL IVP SCH (21:00)
[2022-04-11] MEDS ORDERED: AMIODARONE HCL 150 MG in DEXTROSE 5%-WATER 97 ML IV ONE (21:00)
[2022-04-11] MEDS: SIMVASTATIN 20 MG TABLET PO SCH (21:00)
[2022-04-11] MEDS ORDERED: ONDANSETRON HCL 4 MG/2 ML VIAL IVP PRN (21:00)
[2022-04-11] MEDS: DOCUSATE SODIUM 100 MG CAPSULE PO SCH (21:00)
[2022-04-11] MEDS ORDERED: *CLINICAL-LEVOFLOXACIN IVPB DOSING CLINICAL ONE (21:00)
[2022-04-11] MEDS ORDERED: BISACODYL 10 MG RECTAL RECTAL SUPPOSITORY PR PRN (21:00)
[2022-04-11] MEDS ORDERED: AMIODARONE HCL 360 MG in DEXTROSE 5%-WATER 242.8 ML IV ONE (21:00)
[2022-04-11] MEDS ORDERED: DEXTROSE 50%-WATER 25 GM/50 ML SYRINGE IVP PRN (21:00)
[2022-04-11] MEDS ORDERED: MAGNESIUM HYDROXIDE SUSPENSION 30 ML UDCUP PO PRN (21:00)
[2022-04-11] MEDS: CLINDAMYCIN 600 MG/D5% WATER 50 ML IV SCH (22:01)
[2022-04-11] MEDS: LEVOFLOXACIN 750 MG/D5% WATER 150 ML IV SCH (22:31)
[2022-04-12] MEDS: HEPARIN SODIUM,PORCINE 5,000 UNITS/ML VIAL SQ SCH ×4 (00:56→23:28)
[2022-04-12] MEDS: MethylPREDNISolone SOD SUCC 125 MG/2 ML VIAL IVP SCH ×4 (00:56→23:28)
[2022-04-12] MEDS ORDERED: AMIODARONE HCL 540 MG in DEXTROSE 5%-WATER 239.2 ML IV ONE (03:00)
[2022-04-12] MEDS: CLINDAMYCIN 600 MG/D5% WATER 50 ML IV SCH ×3 (04:35→22:16)
[2022-04-12 05:39] LABS: BASOPHILS % (AUTO) 0.1 % (0.0-2.0); EOSINOPHILS % (AUTO) 0 % (1.0-6.0); HEMATOCRIT 37.8 % (36-46); HEMOGLOBIN 12.4 g/dL (12.0-16.0); LYMPHOCYTES # (AUTO) 0.6 K/uL (1.0-4.8); LYMPHOCYTES % (AUTO) 5.2 % (22.0-44.0); MEAN CORPUSCULAR HGB CONC 32.8 G/dL (31.0-37.0); MEAN CORPUSCULAR VOLUME 104 fL (80-100); MONOCYTES # (AUTO) 0.4 K/uL (0.1-1.0); MONOCYTES % (AUTO) 3.4 % (2.0-9.0); NEUTROPHILS # (AUTO) 9.7 K/uL (1.8-7.7); PLATELET COUNT (AUTO) 124 K/uL (150-450); RED BLOOD CELL COUNT(AUTO) 3.65 MIL/uL (4.00-5.20); RED CELL DISTRIBUTION WIDTH 14.9 % (11.5-14.5)
[2022-04-12 05:42] LABS: NEUTROPHILS % (AUTO) 91.3 % (40.0-70.0)
[2022-04-12] MEDS ORDERED: FUROSEMIDE 40 MG/4 ML VIAL IVP SCH (09:00)
[2022-04-12] MEDS: DOCUSATE SODIUM 100 MG CAPSULE PO SCH ×2 (09:22→22:15)
[2022-04-12] MEDS: PANTOPRAZOLE SODIUM 40 MG DR TABLET PO SCH (09:22)
[2022-04-12] MEDS: ASPIRIN 81 MG CHEWABLE TABLET PO SCH (09:22)
[2022-04-12] MEDS: BUDESONIDE 0.5 MG/2 ML NEB SOLUTION NEB SCH ×2 (10:12→21:00)
[2022-04-12] MEDS: AMIODARONE HCL 200 MG TABLET PO SCH ×2 (13:42→22:15)
[2022-04-12] MEDS ORDERED: IPRATROPIUM BROMIDE 0.5 MG/2.5 ML NEB SOLUTION NEB PRN (15:00)
[2022-04-12 16:35] VITALS: BP 115/94
[2022-04-12 19:39] VITALS: BP 123/93
[2022-04-12] MEDS: IPRATROPIUM BROMIDE 0.5 MG/2.5 ML NEB SOLUTION NEB SCH (20:00)
[2022-04-12] MEDS ORDERED: AMIODARONE HCL 750 MG in DEXTROSE 5%-WATER 485 ML IV SCH (21:00)
[2022-04-12 22:07] LABS: GLUCOMETER DEV NAME(LOC) 5S.1B; GLUCOSE,POINT OF CARE 226 MG/DL (70-110)
[2022-04-12] MEDS: SIMVASTATIN 20 MG TABLET PO SCH (22:15)
[2022-04-12] MEDS: INSULIN LISPRO 100 UNITS/ML SQ PRN (22:17)
[2022-04-12] MEDS: LEVOFLOXACIN 750 MG/D5% WATER 150 ML IV SCH (23:28)
[2022-04-12] MEDS: ZOLPIDEM TARTRATE 5 MG TABLET PO PRN (23:28)
[2022-04-13 00:06] VITALS: BP 148/82
[2022-04-13 00:51] LABS: GLUCOMETER DEV NAME(LOC) 5N.1C; GLUCOSE,POINT OF CARE 195 MG/DL (70-110)
[2022-04-13] MEDS: IPRATROPIUM BROMIDE 0.5 MG/2.5 ML NEB SOLUTION NEB SCH ×4 (02:00→20:40)
[2022-04-13 04:44] VITALS: BP 132/89
[2022-04-13] MEDS: CLINDAMYCIN 600 MG/D5% WATER 50 ML IV SCH ×3 (05:27→20:04)
[2022-04-13 06:21] LABS: BASOPHILS % (AUTO) 0.4 % (0.0-2.0); EOSINOPHILS % (AUTO) 0 % (1.0-6.0); HEMATOCRIT 35.7 % (36-46); LYMPHOCYTES # (AUTO) 0.8 K/uL (1.0-4.8); LYMPHOCYTES % (AUTO) 16.9 % (22.0-44.0); MEAN CORPUSCULAR HEMOGLOBIN 34.6 pg (26.0-34.0); MEAN CORPUSCULAR HGB CONC 33.7 G/dL (31.0-37.0); MEAN CORPUSCULAR VOLUME 103 fL (80-100); MONOCYTES # (AUTO) 0.3 K/uL (0.1-1.0); MONOCYTES % (AUTO) 5.6 % (2.0-9.0); NEUTROPHILS # (AUTO) 3.8 K/uL (1.8-7.7); NEUTROPHILS % (AUTO) 77.1 % (40.0-70.0); PLATELET COUNT (AUTO) 113 K/uL (150-450); RED BLOOD CELL COUNT(AUTO) 3.49 MIL/uL (4.00-5.20)
[2022-04-13 06:39] LABS: ANION GAP 4 mmol/L (8-16); CARBON DIOXIDE 38 mmol/L (22-29); CHLORIDE 93 mmol/L (98-107); CREATININE 0.63 mg/dL (0.60-1.30); GLUCOSE,RANDOM 182 mg/dL (70-110); POTASSIUM 4.3 mmol/L (3.5-5.1); SODIUM SERUM 135 mmol/L (136-145); UREA NITROGEN, BLOOD 24 mg/dL (7-18)
[2022-04-13 06:43] LABS: GLOMERULAR FILTR. RATE CALC > 60 mL/min (>60)
[2022-04-13 06:56] LABS: GLUCOMETER DEV NAME(LOC) 5N.3; GLUCOSE,POINT OF CARE 194 MG/DL (70-110)
[2022-04-13] MEDS: HEPARIN SODIUM,PORCINE 5,000 UNITS/ML VIAL SQ SCH ×4 (08:00→23:25)
[2022-04-13 08:04] VITALS: BP 133/94
[2022-04-13] MEDS: BUDESONIDE 0.5 MG/2 ML NEB SOLUTION NEB SCH ×2 (08:23→20:40)
[2022-04-13] MEDS: MethylPREDNISolone SOD SUCC 125 MG/2 ML VIAL IVP SCH ×3 (09:15→23:27)
[2022-04-13] MEDS: FUROSEMIDE 40 MG/4 ML VIAL IVP SCH (09:15)
[2022-04-13] MEDS: ASPIRIN 81 MG CHEWABLE TABLET PO SCH (09:15)
[2022-04-13] MEDS: AMIODARONE HCL 200 MG TABLET PO SCH ×2 (09:16→20:04)
[2022-04-13] MEDS: DOCUSATE SODIUM 100 MG CAPSULE PO SCH ×2 (09:16→20:04)
[2022-04-13] MEDS: PANTOPRAZOLE SODIUM 40 MG DR TABLET PO SCH (09:16)
[2022-04-13] MEDS ORDERED: ALBUTEROL SULFATE 2.5 MG/0.5 ML NEB SOLUTION NEB PRN (10:15)
[2022-04-13 11:17] VITALS: BP 100/60
[2022-04-13] MEDS: INSULIN LISPRO 100 UNITS/ML SQ PRN ×3 (11:51→20:05)
[2022-04-13] MEDS: ALBUTEROL SULFATE 2.5 MG/0.5 ML NEB SOLUTION NEB SCH ×2 (13:31→20:40)
[2022-04-13] MEDS: QUEtiapine FUMARATE 100 MG TABLET PO SCH (16:26)
[2022-04-13 18:06] LABS: GLUCOMETER DEV NAME(LOC) 5S.1B; GLUCOSE,POINT OF CARE 349 MG/DL (70-110)
[2022-04-13 20:01] LABS: GLUCOMETER DEV NAME(LOC) 5S.1B; GLUCOSE,POINT OF CARE 235 MG/DL (70-110)
[2022-04-13 20:02] VITALS: BP 118/67
[2022-04-13] MEDS: SIMVASTATIN 20 MG TABLET PO SCH (20:04)
[2022-04-13] MEDS: ZOLPIDEM TARTRATE 5 MG TABLET PO PRN (20:04)
[2022-04-13] MEDS: DIVALPROEX SODIUM 500 MG DR TABLET PO SCH (20:04)
[2022-04-13 20:52] LABS: GLUCOMETER DEV NAME(LOC) 5N.3; GLUCOSE,POINT OF CARE 205 MG/DL (70-110)
[2022-04-13] MEDS: LEVOFLOXACIN 750 MG/D5% WATER 150 ML IV SCH (21:40)
[2022-04-14] MEDS: IPRATROPIUM BROMIDE 0.5 MG/2.5 ML NEB SOLUTION NEB SCH ×4 (02:45→21:20)
[2022-04-14] MEDS: ALBUTEROL SULFATE 2.5 MG/0.5 ML NEB SOLUTION NEB SCH ×4 (02:45→21:20)
[2022-04-14] MEDS: CLINDAMYCIN 600 MG/D5% WATER 50 ML IV SCH ×3 (04:41→20:59)
[2022-04-14 06:24] VITALS: BP 128/53
[2022-04-14 06:42] LABS: GLUCOMETER DEV NAME(LOC) 5S.1B; GLUCOSE,POINT OF CARE 273 MG/DL (70-110)
[2022-04-14] MEDS: INSULIN LISPRO 100 UNITS/ML SQ PRN ×4 (06:51→21:10)
[2022-04-14 07:34] LABS: BASOPHILS % (AUTO) 0.1 % (0.0-2.0); EOSINOPHILS % (AUTO) 0 % (1.0-6.0); HEMATOCRIT 35.1 % (36-46); HEMOGLOBIN 11.8 g/dL (12.0-16.0); LYMPHOCYTES # (AUTO) 0.6 K/uL (1.0-4.8); LYMPHOCYTES % (AUTO) 12.6 % (22.0-44.0); MEAN CORPUSCULAR HEMOGLOBIN 34.4 pg (26.0-34.0); MEAN CORPUSCULAR HGB CONC 33.6 G/dL (31.0-37.0); MEAN CORPUSCULAR VOLUME 103 fL (80-100); MONOCYTES # (AUTO) 0.5 K/uL (0.1-1.0); MONOCYTES % (AUTO) 10.6 % (2.0-9.0); NEUTROPHILS # (AUTO) 3.4 K/uL (1.8-7.7); NEUTROPHILS % (AUTO) 76.7 % (40.0-70.0); PLATELET COUNT (AUTO) 113 K/uL (150-450); RED BLOOD CELL COUNT(AUTO) 3.42 MIL/uL (4.00-5.20); RED CELL DISTRIBUTION WIDTH 15.1 % (11.5-14.5)
[2022-04-14 07:40] VITALS: BP 142/112
[2022-04-14 07:44] LABS: ANION GAP 2 mmol/L (8-16); CALCIUM, TOTAL 9.5 mg/dL (8.8-10.5); CARBON DIOXIDE 39 mmol/L (22-29); CHLORIDE 92 mmol/L (98-107); CREATININE 0.63 mg/dL (0.60-1.30); GLUCOSE,RANDOM 299 mg/dL (70-110); POTASSIUM 3.6 mmol/L (3.5-5.1); SODIUM SERUM 133 mmol/L (136-145); UREA NITROGEN, BLOOD 31 mg/dL (7-18)
[2022-04-14 07:46] LABS: GLOMERULAR FILTR. RATE CALC > 60 mL/min (>60)
[2022-04-14] MEDS: HEPARIN SODIUM,PORCINE 5,000 UNITS/ML VIAL SQ SCH ×2 (08:00→15:31)
[2022-04-14] MEDS: BUDESONIDE 0.5 MG/2 ML NEB SOLUTION NEB SCH ×2 (08:05→21:31)
[2022-04-14] MEDS: AMIODARONE HCL 200 MG TABLET PO SCH ×2 (08:51→21:24)
[2022-04-14] MEDS: PANTOPRAZOLE SODIUM 40 MG DR TABLET PO SCH (08:51)
[2022-04-14] MEDS: DOCUSATE SODIUM 100 MG CAPSULE PO SCH ×2 (08:51→20:59)
[2022-04-14] MEDS: DIVALPROEX SODIUM 500 MG DR TABLET PO SCH ×2 (08:51→20:59)
[2022-04-14] MEDS: ASPIRIN 81 MG CHEWABLE TABLET PO SCH (08:51)
[2022-04-14] MEDS: QUEtiapine FUMARATE 100 MG TABLET PO SCH (08:52)
[2022-04-14] MEDS: FUROSEMIDE 40 MG/4 ML VIAL IVP SCH (08:56)
[2022-04-14] MEDS: MethylPREDNISolone SOD SUCC 125 MG/2 ML VIAL IVP SCH ×2 (09:02→15:29)
[2022-04-14 11:30] VITALS: BP 115/61
[2022-04-14 16:10] VITALS: BP 121/57
[2022-04-14 17:36] LABS: GLUCOMETER DEV NAME(LOC) 5S.1B; GLUCOSE,POINT OF CARE 281 MG/DL (70-110)
[2022-04-14 18:56] LABS: GLUCOMETER DEV NAME(LOC) 5S.2B; GLUCOSE,POINT OF CARE 313 MG/DL (70-110)
[2022-04-14 19:18] VITALS: BP 109/51
[2022-04-14 19:43] LABS: BILIRUBIN,TOTAL 0.1 mg/dL (0.1-1.0); TOTAL PROTEIN, SERUM 7.6 g/dL (6.4-8.2)
[2022-04-14 19:53] LABS: ALBUMIN 2.6 g/dL (3.4-5.0); BILIRUBIN,DIRECT 0.1 mg/dL (0.00-0.20)
[2022-04-14] MEDS: SIMVASTATIN 20 MG TABLET PO SCH (20:59)
[2022-04-14] MEDS: ZOLPIDEM TARTRATE 5 MG TABLET PO PRN (21:24)
[2022-04-14] MEDS: LEVOFLOXACIN 750 MG/D5% WATER 150 ML IV SCH (22:25)
[2022-04-15] MEDS: MethylPREDNISolone SOD SUCC 125 MG/2 ML VIAL IVP SCH ×3 (00:25→18:24)
[2022-04-15] MEDS: HEPARIN SODIUM,PORCINE 5,000 UNITS/ML VIAL SQ SCH ×3 (00:25→16:00)
[2022-04-15] MEDS: ALBUTEROL SULFATE 2.5 MG/0.5 ML NEB SOLUTION NEB SCH ×4 (00:33→20:10)
[2022-04-15] MEDS: IPRATROPIUM BROMIDE 0.5 MG/2.5 ML NEB SOLUTION NEB SCH ×4 (00:33→20:10)
[2022-04-15 05:43] VITALS: BP 111/70
[2022-04-15] MEDS: CLINDAMYCIN 600 MG/D5% WATER 50 ML IV SCH ×3 (05:50→22:04)
[2022-04-15 06:46] LABS: GLUCOMETER DEV NAME(LOC) 5S.2B; GLUCOSE,POINT OF CARE 264 MG/DL (70-110)
[2022-04-15 07:56] VITALS: BP 114/88
[2022-04-15] MEDS: BUDESONIDE 0.5 MG/2 ML NEB SOLUTION NEB SCH ×2 (08:04→20:10)
[2022-04-15 08:06] LABS: HEPATITIS C AB (EIA) 0.1 s/co ratio (0.0-0.9)
[2022-04-15] MEDS: FUROSEMIDE 40 MG/4 ML VIAL IVP SCH (09:55)
[2022-04-15] MEDS: DIVALPROEX SODIUM 500 MG DR TABLET PO SCH ×2 (09:56→22:04)
[2022-04-15] MEDS: ASPIRIN 81 MG CHEWABLE TABLET PO SCH (09:56)
[2022-04-15] MEDS: DOCUSATE SODIUM 100 MG CAPSULE PO SCH ×2 (09:56→21:42)
[2022-04-15] MEDS: AMIODARONE HCL 200 MG TABLET PO SCH ×2 (09:57→21:38)
[2022-04-15] MEDS: QUEtiapine FUMARATE 100 MG TABLET PO SCH (09:57)
[2022-04-15] MEDS: PANTOPRAZOLE SODIUM 40 MG DR TABLET PO SCH (09:58)
[2022-04-15 10:42] LABS: GLUCOMETER DEV NAME(LOC) 5S.1B; GLUCOSE,POINT OF CARE 266 MG/DL (70-110)
[2022-04-15 11:11] VITALS: BP 114/59
[2022-04-15 15:15] VITALS: BP 112/55
[2022-04-15] MEDS ORDERED: DEXTROSE 50%-WATER 25 GM/50 ML SYRINGE IVP PRN (18:30)
[2022-04-15] MEDS: INSULIN LISPRO 100 UNITS/ML SQ PRN ×2 (18:39→22:07)
[2022-04-15 20:10] VITALS: BP 111/57
[2022-04-15] MEDS: ZOLPIDEM TARTRATE 5 MG TABLET PO PRN (21:39)
[2022-04-15] MEDS: SIMVASTATIN 20 MG TABLET PO SCH (21:41)
[2022-04-15] MEDS: LEVOFLOXACIN 750 MG/D5% WATER 150 ML IV SCH (22:04)
[2022-04-15 22:46] LABS: GLUCOMETER DEV NAME(LOC) 5S.1B; GLUCOSE,POINT OF CARE 350 MG/DL (70-110)
[2022-04-15 22:46] LABS: GLUCOMETER DEV NAME(LOC) 5S.1B; GLUCOSE,POINT OF CARE 430 MG/DL (70-110)
[2022-04-16 00:10] VITALS: BP 118/73
[2022-04-16] MEDS: ALBUTEROL SULFATE 2.5 MG/0.5 ML NEB SOLUTION NEB SCH ×4 (02:00→19:20)
[2022-04-16] MEDS: IPRATROPIUM BROMIDE 0.5 MG/2.5 ML NEB SOLUTION NEB SCH ×4 (02:00→19:20)
[2022-04-16 04:45] VITALS: BP 110/61
[2022-04-16] MEDS: CLINDAMYCIN 600 MG/D5% WATER 50 ML IV SCH ×3 (05:01→19:50)
[2022-04-16] MEDS: INSULIN LISPRO 100 UNITS/ML SQ PRN ×4 (06:55→21:00)
[2022-04-16 07:50] VITALS: BP 119/69
[2022-04-16] MEDS: BUDESONIDE 0.5 MG/2 ML NEB SOLUTION NEB SCH ×2 (08:17→19:37)
[2022-04-16] MEDS: DIVALPROEX SODIUM 500 MG DR TABLET PO SCH ×2 (08:30→19:49)
[2022-04-16] MEDS: ASPIRIN 81 MG CHEWABLE TABLET PO SCH (08:30)
[2022-04-16] MEDS: QUEtiapine FUMARATE 100 MG TABLET PO SCH (08:30)
[2022-04-16] MEDS: MethylPREDNISolone SOD SUCC 125 MG/2 ML VIAL IVP SCH ×2 (08:31)
[2022-04-16] MEDS: DOCUSATE SODIUM 100 MG CAPSULE PO SCH ×2 (08:31→19:49)
[2022-04-16] MEDS: AMIODARONE HCL 200 MG TABLET PO SCH ×2 (08:31→19:50)
[2022-04-16] MEDS: PANTOPRAZOLE SODIUM 40 MG DR TABLET PO SCH (08:31)
[2022-04-16] MEDS: FUROSEMIDE 40 MG/4 ML VIAL IVP SCH ×2 (08:32→09:47)
[2022-04-16] MEDS: HEPARIN SODIUM,PORCINE 5,000 UNITS/ML VIAL SQ SCH ×4 (08:32→23:56)
[2022-04-16 12:00] VITALS: BP 108/62
[2022-04-16 14:46] VITALS: BP 129/72
[2022-04-16] MEDS: MethylPREDNISolone SOD SUCC 40 MG/ML VIAL IVP SCH ×2 (15:28→23:56)
[2022-04-16] MEDS: SIMVASTATIN 20 MG TABLET PO SCH (19:49)
[2022-04-16 20:08] VITALS: BP 111/70
[2022-04-16] MEDS: ZOLPIDEM TARTRATE 5 MG TABLET PO PRN (20:23)
[2022-04-16] MEDS: LEVOFLOXACIN 750 MG/D5% WATER 150 ML IV SCH (20:23)
[2022-04-16] MEDS ORDERED: SODIUM CHLORIDE 0.9% 500 ML IV ONE (20:24)
[2022-04-17 00:36] LABS: GLUCOMETER DEV NAME(LOC) 5S.2B; GLUCOSE,POINT OF CARE 319 MG/DL (70-110)
[2022-04-17 00:36] LABS: GLUCOMETER DEV NAME(LOC) 5S.1B; GLUCOSE,POINT OF CARE 248 MG/DL (70-110)
[2022-04-17 00:36] LABS: GLUCOMETER DEV NAME(LOC) 5S.2B; GLUCOSE,POINT OF CARE 316 MG/DL (70-110)
[2022-04-17 00:37] LABS: GLUCOMETER DEV NAME(LOC) 5S.2B; GLUCOSE,POINT OF CARE 486 MG/DL (70-110)
[2022-04-17] MEDS: IPRATROPIUM BROMIDE 0.5 MG/2.5 ML NEB SOLUTION NEB SCH ×4 (02:00→19:59)
[2022-04-17] MEDS: ALBUTEROL SULFATE 2.5 MG/0.5 ML NEB SOLUTION NEB SCH ×4 (02:00→19:59)
[2022-04-17 05:05] VITALS: BP 109/74
[2022-04-17] MEDS: CLINDAMYCIN 600 MG/D5% WATER 50 ML IV SCH ×3 (05:11→21:02)
[2022-04-17] MEDS: INSULIN LISPRO 100 UNITS/ML SQ PRN ×4 (06:43→21:25)
[2022-04-17 07:23] VITALS: BP 128/80
[2022-04-17 08:16] LABS: GLUCOMETER DEV NAME(LOC) 5S.2B; GLUCOSE,POINT OF CARE 311 MG/DL (70-110)
[2022-04-17] MEDS: BUDESONIDE 0.5 MG/2 ML NEB SOLUTION NEB SCH ×2 (08:26→19:59)
[2022-04-17] MEDS: MethylPREDNISolone SOD SUCC 40 MG/ML VIAL IVP SCH ×2 (08:30→21:02)
[2022-04-17] MEDS: HEPARIN SODIUM,PORCINE 5,000 UNITS/ML VIAL SQ SCH ×3 (08:31→23:36)
[2022-04-17] MEDS: ASPIRIN 81 MG CHEWABLE TABLET PO SCH (08:31)
[2022-04-17] MEDS: FUROSEMIDE 40 MG/4 ML VIAL IVP SCH (08:31)
[2022-04-17] MEDS: DIVALPROEX SODIUM 500 MG DR TABLET PO SCH ×2 (08:40→21:01)
[2022-04-17] MEDS: AMIODARONE HCL 200 MG TABLET PO SCH ×2 (08:40→21:01)
[2022-04-17] MEDS: DOCUSATE SODIUM 100 MG CAPSULE PO SCH ×2 (08:40→21:02)
[2022-04-17] MEDS: PANTOPRAZOLE SODIUM 40 MG DR TABLET PO SCH (08:40)
[2022-04-17] MEDS: QUEtiapine FUMARATE 100 MG TABLET PO SCH (08:41)
[2022-04-17 11:39] VITALS: BP 125/72
[2022-04-17] MEDS ORDERED: INSULIN LISPRO 100 UNITS/ML SQ ONE (12:15)
[2022-04-17 12:57] LABS: GLUCOMETER DEV NAME(LOC) 5S.2B; GLUCOSE,POINT OF CARE 434 MG/DL (70-110)
[2022-04-17 15:05] VITALS: BP 110/65
[2022-04-17 19:32] VITALS: BP 113/60
[2022-04-17 20:46] LABS: GLUCOMETER DEV NAME(LOC) 5S.1B; GLUCOSE,POINT OF CARE 265 MG/DL (70-110)
[2022-04-17] MEDS: SIMVASTATIN 20 MG TABLET PO SCH (21:01)
[2022-04-17] MEDS: INSULIN GLARGINE,HUM.REC.ANLOG 100 UNITS/ML SQ SCH (21:25)
[2022-04-17] MEDS: ZOLPIDEM TARTRATE 5 MG TABLET PO PRN (21:30)
[2022-04-17] MEDS: LEVOFLOXACIN 750 MG/D5% WATER 150 ML IV SCH (21:58)
[2022-04-17 22:01] LABS: GLUCOMETER DEV NAME(LOC) 5S.2B; GLUCOSE,POINT OF CARE 242 MG/DL (70-110)
[2022-04-18] MEDS: IPRATROPIUM BROMIDE 0.5 MG/2.5 ML NEB SOLUTION NEB SCH ×4 (02:00→20:19)
[2022-04-18] MEDS: ALBUTEROL SULFATE 2.5 MG/0.5 ML NEB SOLUTION NEB SCH ×4 (02:00→20:20)
[2022-04-18] MEDS: CLINDAMYCIN 600 MG/D5% WATER 50 ML IV SCH ×3 (05:45→20:26)
[2022-04-18 05:48] VITALS: BP 103/61
[2022-04-18] MEDS: INSULIN LISPRO 100 UNITS/ML SQ PRN ×4 (05:51→21:18)
[2022-04-18 06:17] LABS: GLUCOMETER DEV NAME(LOC) 5S.1B; GLUCOSE,POINT OF CARE 309 MG/DL (70-110)
[2022-04-18] MEDS: BUDESONIDE 0.5 MG/2 ML NEB SOLUTION NEB SCH ×2 (08:14→20:20)
[2022-04-18 08:18] LABS: BASOPHILS % (AUTO) 0.3 % (0.0-2.0); EOSINOPHILS % (AUTO) 0 % (1.0-6.0); HEMATOCRIT 38.6 % (36-46); HEMOGLOBIN 12.5 g/dL (12.0-16.0); LYMPHOCYTES # (AUTO) 0.9 K/uL (1.0-4.8); LYMPHOCYTES % (AUTO) 18.8 % (22.0-44.0); MEAN CORPUSCULAR HEMOGLOBIN 33.8 pg (26.0-34.0); MEAN CORPUSCULAR HGB CONC 32.4 G/dL (31.0-37.0); MEAN CORPUSCULAR VOLUME 104 fL (80-100); MONOCYTES # (AUTO) 0.4 K/uL (0.1-1.0); MONOCYTES % (AUTO) 9.8 % (2.0-9.0); NEUTROPHILS # (AUTO) 3.3 K/uL (1.8-7.7); NEUTROPHILS % (AUTO) 71.1 % (40.0-70.0); PLATELET COUNT (AUTO) 141 K/uL (150-450); RED CELL DISTRIBUTION WIDTH 15.4 % (11.5-14.5)
[2022-04-18 08:30] LABS: ANION GAP 0 mmol/L (8-16); CALCIUM, TOTAL 9.1 mg/dL (8.8-10.5); CARBON DIOXIDE 34 mmol/L (22-29); CHLORIDE 96 mmol/L (98-107); CREATININE 0.58 mg/dL (0.60-1.30); GLUCOSE,RANDOM 267 mg/dL (70-110); POTASSIUM 4.4 mmol/L (3.5-5.1); SODIUM SERUM 130 mmol/L (136-145); UREA NITROGEN, BLOOD 40 mg/dL (7-18)
[2022-04-18 08:31] LABS: GLOMERULAR FILTR. RATE CALC > 60 mL/min (>60)
[2022-04-18] MEDS: MethylPREDNISolone SOD SUCC 40 MG/ML VIAL IVP SCH (08:56)
[2022-04-18] MEDS: PANTOPRAZOLE SODIUM 40 MG DR TABLET PO SCH (08:56)
[2022-04-18] MEDS: DIVALPROEX SODIUM 500 MG DR TABLET PO SCH ×2 (08:56→20:52)
[2022-04-18] MEDS: FUROSEMIDE 40 MG/4 ML VIAL IVP SCH (08:57)
[2022-04-18] MEDS: DOCUSATE SODIUM 100 MG CAPSULE PO SCH ×2 (08:57→20:51)
[2022-04-18] MEDS: ASPIRIN 81 MG CHEWABLE TABLET PO SCH (08:57)
[2022-04-18] MEDS: AMIODARONE HCL 200 MG TABLET PO SCH ×2 (08:57→20:49)
[2022-04-18] MEDS: QUEtiapine FUMARATE 100 MG TABLET PO SCH (08:57)
[2022-04-18 08:58] VITALS: BP 125/74
[2022-04-18] MEDS: HEPARIN SODIUM,PORCINE 5,000 UNITS/ML VIAL SQ SCH ×3 (08:58→23:33)
[2022-04-18] MEDS: INSULIN GLARGINE,HUM.REC.ANLOG 100 UNITS/ML SQ SCH ×2 (09:15→21:05)
[2022-04-18] MEDS: PredniSONE 20 MG TABLET PO SCH (10:52)
[2022-04-18 11:49] VITALS: BP 123/77
[2022-04-18 16:28] VITALS: BP 107/64
[2022-04-18 17:26] LABS: GLUCOMETER DEV NAME(LOC) 5S.1B; GLUCOSE,POINT OF CARE 333 MG/DL (70-110)
[2022-04-18 17:31] LABS: GLUCOMETER DEV NAME(LOC) 5S.2B; GLUCOSE,POINT OF CARE 374 MG/DL (70-110)
[2022-04-18 17:41] LABS: GLUCOMETER DEV NAME(LOC) 5S.1B; GLUCOSE,POINT OF CARE 285 MG/DL (70-110)
[2022-04-18 19:40] VITALS: BP 110/70
[2022-04-18] MEDS: SIMVASTATIN 20 MG TABLET PO SCH (20:52)
[2022-04-18] MEDS: ZOLPIDEM TARTRATE 5 MG TABLET PO PRN (21:06)
[2022-04-18] MEDS ORDERED: INSULIN GLARGINE,HUM.REC.ANLOG 100 UNITS/ML SQ ONE (21:15)
[2022-04-18 21:51] LABS: GLUCOMETER DEV NAME(LOC) 5N.3; GLUCOSE,POINT OF CARE 449 MG/DL (70-110)
[2022-04-18] MEDS: LEVOFLOXACIN 750 MG/D5% WATER 150 ML IV SCH (23:31)
[2022-04-18 23:55] VITALS: BP 126/69
[2022-04-19] MEDS: IPRATROPIUM BROMIDE 0.5 MG/2.5 ML NEB SOLUTION NEB SCH ×5 (03:08→20:21)
[2022-04-19] MEDS: ALBUTEROL SULFATE 2.5 MG/0.5 ML NEB SOLUTION NEB SCH ×5 (03:09→20:20)
[2022-04-19 04:10] VITALS: BP 122/64
[2022-04-19] MEDS: CLINDAMYCIN 600 MG/D5% WATER 50 ML IV SCH ×3 (05:04→21:49)
[2022-04-19] MEDS: BUDESONIDE 0.5 MG/2 ML NEB SOLUTION NEB SCH ×3 (07:27→20:29)
[2022-04-19 07:35] LABS: BASOPHILS % (AUTO) 0.7 % (0.0-2.0); EOSINOPHILS % (AUTO) 0.3 % (1.0-6.0); HEMATOCRIT 37.8 % (36-46); HEMOGLOBIN 12.5 g/dL (12.0-16.0); LYMPHOCYTES # (AUTO) 2.5 K/uL (1.0-4.8); LYMPHOCYTES % (AUTO) 34.7 % (22.0-44.0); MEAN CORPUSCULAR HEMOGLOBIN 34.1 pg (26.0-34.0); MEAN CORPUSCULAR HGB CONC 33.1 G/dL (31.0-37.0); MEAN CORPUSCULAR VOLUME 103 fL (80-100); MONOCYTES # (AUTO) 1.1 K/uL (0.1-1.0); MONOCYTES % (AUTO) 15.7 % (2.0-9.0); NEUTROPHILS # (AUTO) 3.5 K/uL (1.8-7.7); NEUTROPHILS % (AUTO) 48.6 % (40.0-70.0); PLATELET COUNT (AUTO) 155 K/uL (150-450); RED BLOOD CELL COUNT(AUTO) 3.67 MIL/uL (4.00-5.20); RED CELL DISTRIBUTION WIDTH 15.3 % (11.5-14.5)
[2022-04-19 07:40] VITALS: BP 120/56
[2022-04-19 07:43] LABS: ANION GAP 0 mmol/L (8-16); CALCIUM, TOTAL 9.2 mg/dL (8.8-10.5); CARBON DIOXIDE 40 mmol/L (22-29); CHLORIDE 96 mmol/L (98-107); CREATININE 0.59 mg/dL (0.60-1.30); GLUCOSE,RANDOM 128 mg/dL (70-110); POTASSIUM 4.5 mmol/L (3.5-5.1); SODIUM SERUM 136 mmol/L (136-145); UREA NITROGEN, BLOOD 36 mg/dL (7-18)
[2022-04-19 07:47] LABS: GLOMERULAR FILTR. RATE CALC > 60 mL/min (>60)
[2022-04-19] MEDS: ASPIRIN 81 MG CHEWABLE TABLET PO SCH (08:36)
[2022-04-19] MEDS: DOCUSATE SODIUM 100 MG CAPSULE PO SCH ×2 (08:38→20:40)
[2022-04-19] MEDS: DIVALPROEX SODIUM 500 MG DR TABLET PO SCH ×2 (08:38→20:41)
[2022-04-19] MEDS: PredniSONE 20 MG TABLET PO SCH (08:38)
[2022-04-19] MEDS: AMIODARONE HCL 200 MG TABLET PO SCH ×2 (08:38→21:48)
[2022-04-19] MEDS: PANTOPRAZOLE SODIUM 40 MG DR TABLET PO SCH (08:39)
[2022-04-19] MEDS: FUROSEMIDE 40 MG/4 ML VIAL IVP SCH (08:40)
[2022-04-19] MEDS: QUEtiapine FUMARATE 100 MG TABLET PO SCH (08:40)
[2022-04-19] MEDS: HEPARIN SODIUM,PORCINE 5,000 UNITS/ML VIAL SQ SCH ×2 (08:41→17:16)
[2022-04-19] MEDS: INSULIN GLARGINE,HUM.REC.ANLOG 100 UNITS/ML SQ SCH ×2 (08:57→20:53)
[2022-04-19 12:00] VITALS: BP 120/68
[2022-04-19] MEDS: INSULIN LISPRO 100 UNITS/ML SQ PRN ×3 (12:11→20:54)
[2022-04-19 16:23] VITALS: BP 106/62
[2022-04-19 17:06] LABS: GLUCOMETER DEV NAME(LOC) 5S.1B; GLUCOSE,POINT OF CARE 136 MG/DL (70-110)
[2022-04-19 19:43] VITALS: BP 146/63
[2022-04-19] MEDS ORDERED: SODIUM CHLORIDE 0.9% 500 ML IV ONE (20:24)
[2022-04-19] MEDS: LEVOFLOXACIN 750 MG/D5% WATER 150 ML IV SCH (20:30)
[2022-04-19] MEDS: SIMVASTATIN 20 MG TABLET PO SCH (20:41)
[2022-04-19] MEDS: ZOLPIDEM TARTRATE 5 MG TABLET PO PRN (20:43)
[2022-04-19 20:45] LABS: GLUCOMETER DEV NAME(LOC) 5S.2B; GLUCOSE,POINT OF CARE 126 MG/DL (70-110)
[2022-04-19 20:56] LABS: GLUCOMETER DEV NAME(LOC) 5N.1C; GLUCOSE,POINT OF CARE 313 MG/DL (70-110)
[2022-04-19 20:56] LABS: GLUCOMETER DEV NAME(LOC) 5N.1C; GLUCOSE,POINT OF CARE 144 MG/DL (70-110)
[2022-04-19 23:06] LABS: GLUCOMETER DEV NAME(LOC) 6N.1; GLUCOSE,POINT OF CARE 338 MG/DL (70-110)
[2022-04-20] MEDS: ALBUTEROL SULFATE 2.5 MG/0.5 ML NEB SOLUTION NEB SCH ×3 (02:00→14:00)
[2022-04-20] MEDS: IPRATROPIUM BROMIDE 0.5 MG/2.5 ML NEB SOLUTION NEB SCH ×3 (02:00→14:00)
[2022-04-20 04:35] VITALS: BP 125/83
[2022-04-20] MEDS: CLINDAMYCIN 600 MG/D5% WATER 50 ML IV SCH ×2 (04:53→13:00)
[2022-04-20 06:30] LABS: BASOPHILS % (AUTO) 0.1 % (0.0-2.0); EOSINOPHILS % (AUTO) 0.2 % (1.0-6.0); HEMATOCRIT 38.1 % (36-46); HEMOGLOBIN 12.8 g/dL (12.0-16.0); LYMPHOCYTES % (AUTO) 32.6 % (22.0-44.0); MEAN CORPUSCULAR HEMOGLOBIN 34.3 pg (26.0-34.0); MEAN CORPUSCULAR HGB CONC 33.4 G/dL (31.0-37.0); MEAN CORPUSCULAR VOLUME 103 fL (80-100); MONOCYTES # (AUTO) 1.1 K/uL (0.1-1.0); MONOCYTES % (AUTO) 17.5 % (2.0-9.0); NEUTROPHILS % (AUTO) 49.6 % (40.0-70.0); PLATELET COUNT (AUTO) 145 K/uL (150-450); RED BLOOD CELL COUNT(AUTO) 3.71 MIL/uL (4.00-5.20); RED CELL DISTRIBUTION WIDTH 15.4 % (11.5-14.5)
[2022-04-20 08:04] VITALS: BP 124/83
[2022-04-20] MEDS: BUDESONIDE 0.5 MG/2 ML NEB SOLUTION NEB SCH (08:10)
[2022-04-20 08:11] LABS: GLUCOMETER DEV NAME(LOC) 6N.1; GLUCOSE,POINT OF CARE 85 MG/DL (70-110)
[2022-04-20 08:15] LABS: GLUCOMETER DEV NAME(LOC) 6N.2B; GLUCOSE,POINT OF CARE 72 MG/DL (70-110)
[2022-04-20] MEDS: QUEtiapine FUMARATE 100 MG TABLET PO SCH (08:48)
[2022-04-20 08:49] LABS: ALANINE AMINOTRANSFERASE 11 U/L (12-78); ALBUMIN 2.3 g/dL (3.4-5.0); ALKALINE PHOSPHATASE 41 U/L (46-116); ANION GAP 7 mmol/L (8-16); ASPARTATE AMINOTRANSFERASE 14 U/L (15-37); BILIRUBIN,TOTAL 0.3 mg/dL (0.1-1.0); CALCIUM, TOTAL 8.8 mg/dL (8.8-10.5); CARBON DIOXIDE 33 mmol/L (22-29); CHLORIDE 95 mmol/L (98-107); CREATININE 0.67 mg/dL (0.60-1.30); GLOMERULAR FILTR. RATE CALC > 60 mL/min (>60); GLUCOSE,RANDOM 86 mg/dL (70-110); SODIUM SERUM 135 mmol/L (136-145); TOTAL PROTEIN, SERUM 6.3 g/dL (6.4-8.2); UREA NITROGEN, BLOOD 37 mg/dL (7-18)
[2022-04-20] MEDS: ASPIRIN 81 MG CHEWABLE TABLET PO SCH (08:49)
[2022-04-20] MEDS: PANTOPRAZOLE SODIUM 40 MG DR TABLET PO SCH (08:49)
[2022-04-20] MEDS: PredniSONE 20 MG TABLET PO SCH (08:50)
[2022-04-20] MEDS: AMIODARONE HCL 200 MG TABLET PO SCH (08:50)
[2022-04-20] MEDS: DOCUSATE SODIUM 100 MG CAPSULE PO SCH (08:51)
[2022-04-20] MEDS: DIVALPROEX SODIUM 500 MG DR TABLET PO SCH (08:51)
[2022-04-20] MEDS: INSULIN GLARGINE,HUM.REC.ANLOG 100 UNITS/ML SQ SCH (08:51)
[2022-04-20] MEDS: FUROSEMIDE 40 MG/4 ML VIAL IVP SCH (08:54)
[2022-04-20] MEDS: HEPARIN SODIUM,PORCINE 5,000 UNITS/ML VIAL SQ SCH ×2 (08:54)
[2022-04-20 12:11] LABS: GLUCOMETER DEV NAME(LOC) 6N.2B; GLUCOSE,POINT OF CARE 203 MG/DL (70-110)
[2022-04-20 12:21] VITALS: BP 116/66
[2022-04-20] MEDS: INSULIN LISPRO 100 UNITS/ML SQ PRN (12:25)
[2022-04-20] MEDS ORDERED: AMIO200T68 PO (13:49)
[2022-04-20] MEDS ORDERED: CLIN300C58 PO (13:50)
[2022-04-20] MEDS ORDERED: BUDE0.5A NEB (13:50)
[2022-04-20] MEDS ORDERED: HEPA500018 SQ (13:51)
[2022-04-20] MEDS ORDERED: INSLAN SQ (13:51)
[2022-04-20] MEDS ORDERED: LEVO-72 PO (15:20)
[2022-04-20] MEDS ORDERED: PANT-31 PO (15:20)
[2022-04-20] MEDS ORDERED: PRED-554 PO (15:21)
[2022-04-20] MEDS ORDERED: ACET-2247 PO (15:23)
[2022-04-20] MEDS ORDERED: INSU100V SQ (15:24)
[2022-04-20] MEDS ORDERED: MAGN-169 PO (15:24)
[2022-04-20] MEDS ORDERED: ONDA-104 PO (15:25)
[2022-04-20] MEDS ORDERED: IPRA3S NASAL (15:34)
== END 2022-04-20 16:40 | disposition home or self-care (01) | DRG 177 ==
LOC: EMS 16:54 → 5S 04-12 16:13 → 6S 04-19 18:24
PROVIDERS: ADMIT Internal Medicine; ATTEND Internal Medicine
DX: J69.0 Pneumonitis due to inhalation of food and vomit (principal); I50.33 Acute on chronic diastolic (congestive) heart failure; J96.01 Acute respiratory failure with hypoxia; J45.901 Unspecified asthma with (acute) exacerbation; E44.0 Moderate protein-calorie malnutrition; N39.0 Urinary tract infection, site not specified; J44.1 Chronic obstructive pulmonary disease with (acute) exacerbation; Q93.82 Williams syndrome; E04.1 Nontoxic single thyroid nodule; E11.9 Type 2 diabetes mellitus without complications; Z20.822 Contact with and (suspected) exposure to COVID-19; E78.5 Hyperlipidemia, unspecified; F17.200 Nicotine dependence, unspecified, uncomplicated; F20.9 Schizophrenia, unspecified; I11.0 Hypertensive heart disease with heart failure; I25.10 Atherosclerotic heart disease of native coronary artery without angina pectoris; I35.0 Nonrheumatic aortic (valve) stenosis; I48.0 Paroxysmal atrial fibrillation; R32 Unspecified urinary incontinence; Z79.51 Long term (current) use of inhaled steroids; Z88.0 Allergy status to penicillin; Z88.2 Allergy status to sulfonamides; Z88.6 Allergy status to analgesic agent; Z68.23 Body mass index [BMI] 23.0-23.9, adult; Z95.1 Presence of aortocoronary bypass graft
CPT/HCPCS: 36573; 71045; 71250; 80048; 80053; 80076; 82550; 82962; 83735; 83880; 84484; 85025; 85610; 85730; 86803; 87340; 93005; 94640; 97165; 97535; 99291; J0282; J1100; J1644; J1815; J1940; J1956; J2405; J2920; J2930; J3490; J7030; J7040; J7060; 36415-L1; 36415-TC; J7613